=== PATIENT | male | born 1980 | race African-American/Black ===

== ENCOUNTER 2020-06-27 07:41 | Outpatient (REF) | payer OTHER, SELFPAY ==
[2020-06-27 08:16] LABS: MANUAL DIFF FLAG NO
[2020-06-27 08:19] LABS: Basophils Percent Auto 0.8 % (0-2); Eosinophils Absolute Auto 0.1 X10*3/uL (0.0-0.4); Eosinophils Percent Auto 1.7 % (0-4); Hemoglobin 16.1 g/dl (14.0-18.0); Imm Gran Abs Auto 0.01 X10*3/uL (0.00-0.03); Imm Gran Pct Auto 0.2 % (0.0-0.4); Lymphocytes Absolute Auto 2.1 X10*3/uL (1.2-4.9); Lymphocytes Percent Auto 43.5 % (20-40); Mean Corpuscular HGB Conc 33.5 g/dl (31.0-36.0); Mean Corpuscular Hemoglobin 27.6 pg (27.0-33.0); Mean Corpuscular Volume 82.2 fL (80-98); Mean Platelet Volume 11.5 fL (9.4-12.4); Monocytes Absolute Auto 0.5 X10*3/uL (0.1-1.2); Monocytes Percent Auto 11.3 % (2-11); Neutrophils Percent Auto 42.5 % (45-73); Platelet Count 259 X10*3/uL (160-400); Red Blood Count 5.84 X10*6/uL (4.60-5.80); Red Cell Distribution Width 13.7 % (11.0-16.0); White Blood Count 4.8 X10*3/uL (4.8-10.8)
[2020-06-27 08:38] LABS: Anion Gap 12 (12-20); Blood Urea Nitrogen 15 mg/dL (9-16); Calcium 9.7 mg/dL (8.4-10.2); Carbon Dioxide 31 mmol/L (22-29); Chloride 102 mmol/L (96-108); Estimated Glomerular Filt Rate > 60; Glucose Random 129 mg/dL (60-115); Potassium 3.5 mmol/L (3.3-5.1); Sodium 141 mmol/L (135-145)
[2020-06-28 02:06] LABS: LDL Cholesterol Direct 137 mg/dL (<100)
== END 2020-06-27 07:42 | disposition home or self-care (01) ==
LOC: HO.LAB 07:41
PROVIDERS: PCP Internal Medicine; Visit Provider Internal Medicine
DX: R21 Rash and other nonspecific skin eruption (principal); D70.9 Neutropenia, unspecified; I10 Essential (primary) hypertension
CPT/HCPCS: 36415; 80048; 83721; 85025

== ENCOUNTER → 2021-04-06 14:00 | Outpatient (BNVA) | payer OTHER, SELFPAY | PROVIDERS: PCP Internal Medicine; Referring Provider Internal Medicine; Visit Provider Psychiatry & Neurology Neurology ==

== ENCOUNTER → 2021-05-05 16:02 | Outpatient (REF) | payer OTHER, SELFPAY | LOC: HO.SL 16:02 | PROVIDERS: PCP Internal Medicine; Visit Provider Psychiatry & Neurology Neurology | DX: G47.33 Obstructive sleep apnea (adult) (pediatric) (principal); I10 Essential (primary) hypertension | CPT/HCPCS: 95806 ==

== ENCOUNTER 2021-05-26 13:17 | Outpatient (REF) | payer OTHER, SELFPAY ==
[2021-05-26 14:26] LABS: Alanine Aminotransferase 37 U/L (0-40); Albumin Level 4.6 g/dL (3.5-5.0); Alkaline Phosphatase 62 U/L (39-117); Anion Gap 13 (12-20); Aspartate Amino Transferase 32 U/L (5-37); Bilirubin Total 0.4 mg/dL (0.0-1.0); Blood Urea Nitrogen 13 mg/dL (9-16); Calcium 10.2 mg/dL (8.4-10.2); Carbon Dioxide 27 mmol/L (22-29); Chloride 104 mmol/L (96-108); Estimated Glomerular Filt Rate > 60; Glucose Random 105 mg/dL (60-115); Potassium 3.7 mmol/L (3.3-5.1); Sodium 140 mmol/L (135-145)
[2021-05-28 02:46] LABS: LDL Cholesterol Direct 141 mg/dL (<100)
== END 2021-05-26 13:18 | disposition home or self-care (01) ==
LOC: HO.HMGCLDS 13:17
PROVIDERS: PCP Internal Medicine; Visit Provider Internal Medicine
DX: E66.9 Obesity, unspecified (principal); I10 Essential (primary) hypertension
CPT/HCPCS: 36415; 80053; 83721

== ENCOUNTER → 2021-07-13 13:58 | Outpatient (BNVA) | payer OTHER, SELFPAY | PROVIDERS: PCP Internal Medicine; Visit Provider Nurse Practitioner Family | DX: Z13.89 Encounter for screening for other disorder (principal) ==

== ENCOUNTER 2021-12-24 09:54 | Outpatient (REF) | payer OTHER, SELFPAY ==
[2021-12-24 12:29] LABS: Alanine Aminotransferase 38 U/L (0-40); Albumin Level 4.6 g/dL (3.5-5.0); Alkaline Phosphatase 47 U/L (39-117); Anion Gap 18 (12-20); Aspartate Amino Transferase 35 U/L (5-37); Bilirubin Total 0.5 mg/dL (0.0-1.0); Blood Urea Nitrogen 18 mg/dL (9-16); Calcium 9.8 mg/dL (8.4-10.2); Carbon Dioxide 24 mmol/L (22-29); Chloride 100 mmol/L (96-108); Estimated Glomerular Filt Rate > 60; Glucose Random 112 mg/dL (60-115); Potassium 3.3 mmol/L (3.3-5.1); Sodium 139 mmol/L (135-145); Total Protein 7.6 g/dL (6.5-8.0)
[2021-12-26 21:07] LABS: LDL Cholesterol Direct 137 mg/dL (<100)
== END 2021-12-24 09:55 | disposition home or self-care (01) ==
LOC: HO.HMGCLDS 09:54
PROVIDERS: PCP Internal Medicine; Visit Provider Internal Medicine
DX: E66.01 Morbid (severe) obesity due to excess calories (principal); I10 Essential (primary) hypertension
CPT/HCPCS: 36415; 80053; 83721

== ENCOUNTER 2022-11-01 13:18 | Outpatient (AMB) | payer OTHER, SELFPAY ==
[2022-11-01 13:22] VITALS: BP 130/90; PULSE 87; O2SAT 96; BMI 47.0
--- NOTE | 2022-11-01 13:22 | MHC.PC.OV ---
Vital Signs 11/01/22 13:22 Height 6 ft 1 in Weight 356 lb 2 oz BMI 47.0 BP 130/90 H Blood Pressure Location Rt brachial Position Sitting Pulse 87 Pulse Source Pulse Oximeter Pulse Oximetry (%) 96 Oxygen Delivery Method Room Air Intake Visit Reasons: PE Allergies Seasonal Allergies Allergy (Intermediate, Verified 11/01/22 13:27) Itching lisinopril Adverse Reaction (Unknown, Verified 11/01/22 13:27) cough Medication List - Last Reconciled 11/01/22 by Kenneth Ceron MD atenolol-chlorthalidone 50-25 mg 1 tab PO DAILY 90 days Tobacco use date assessed: 11/01/22 Dental Screening Dental Screen Date: 11/01/22 Did you have a dental visit in the last 12 months?: No Did you have a dental problem in the last 6 months where you did not have access to dental care?: No Was dental information given to patient?: No HPI PE HPI Details Patient is 42-year-old gentleman was seen November of last year and missed his follow-up appointment after that Complaining of itching in the ears, patient was advised to stop using Q-tips after every shower He has traumatize his left ear canal with the knee and has a small bump, patient says that it is getting better Due for labs BMI is 47.0 need to lose weight Follow up 4 months [facility] Medical History Hypertension, essential Neutropenia Obesity Rash Tinea versicolor Surgical History No pertinent past surgical history Family History Father Unknown family medical history Mother HTN (hypertension) Afib CHF (congestive heart failure) Sister Diabetes mellitus HTN (hypertension) Family history of malignant neoplasm of uterus CKD (chronic kidney disease) Social History Housing: House Alcohol intake: never Patient Tobacco Use Status: Never used Tobacco e-Cigarette/Vaping Use: Never Used Current occupational status: employed Cognitive needs: No Hearing needs: No Vision needs: Yes Questionnaire PHQ-9 Over the last 2 weeks, how often have you been bothered by any of the following problems? 1. Little interest or pleasure in doing things: not at all 2. Feeling down, depressed, or hopeless: not at all 3. Trouble falling or staying asleep, or sleeping too much: not at all 4. Feeling tired or having little energy: several days 5. Poor appetite or overeating: not at all 6. Feeling bad about yourself - or that you are a failure or have let yourself or your family down: several days 7. Trouble concentrating on things, such as reading the newspaper or watching television: several days 8. Moving or speaking so slowly that other people could have noticed. Or the opposite - being so fidgety or restless that you have been moving around a lot more than usual: not at all 9. Thoughts that you would be better off or of hurting yourself in some way: not at all Total score: 3 Depression Screening Interpretation: Negative 29339 - PHQ-9 Billing: Yes Source: Developed by Drs. Tyrel Jiang, Jackie Dukes, Memo Ellis and colleagues, with an educational belinda from [employer]. Thrive Questionnaire Date Thrive assessed: 11/01/22 I am a: Patient What is your living situation today?: I have a steady place to live Within the past 12 months, did the food you bought not last and you didn't have the money to get more?: Never true Within the past 12 months, did you worry whether your food would run out before you got money to buy more?: Never true Do you have trouble paying for medicines?: No Do you have trouble getting transportation to medical appointments?: No Do you have trouble paying your heating and electricity bill?: No Do you have trouble taking care of your child, family member or friend?: No Do you have trouble with day-to-day activities such as bathing, preparing meals, shopping, managing finances, etc.?: No Are you currently unemployed and looking for a job?: No Are you interested in more education?: Yes AUDIT C Alcohol Use Questionnaire (AUDIT-C) 1. How often do you have a drink containing alcohol?: Never 3. How often do you have six or more drinks on one occasion?: Never Total Score: 0 Score Reviewed/Action Taken: Yes QUINCY-7 AMB Questionnaire QUINCY-7 Date QUINCY - 7 assessed: 11/01/22 Feeling nervous, anxious, or on edge: 0 = Not at all Not being able to stop or control worryin = More than half the days Worrying too much about different things: 2 = More than half the days Trouble relaxin = Several days Being so restless that it is hard to sit still: 0 = Not at all Becoming easily annoyed or irritable: 2 = More than half the days Feeling afraid as if something awful might happen: 2 = More than half the days Total QUINCY-7 score (0-4 normal; 5-9 mild; 10-14 moderate; 15-21 severe): 9 Source: Developed by Drs. Tyrel Jiang, Jackie Dukes, Memo Ellis and colleagues, with an educational belinda from [employer]. QUINCY-7 Assessment Billing QUINCY-7 Assessment Tool: QUINCY-7 Assessment 66734 Review of Systems Const Denies chills, Denies fever(s) and Denies headache(s) Eyes Denies blurry vision ENT Denies headache(s), Denies nasal discharge, Denies nasal obstruction, Denies odynophagia and Denies sinus pain Card Denies chest pain at rest and Denies chest pain with activity Resp Denies cough and Denies hemoptysis GI Denies diarrhea, Denies odynophagia, Denies vomiting and Denies hematemesis Reports as per HPI Musc Denies abnormal gait Skin/Breast Reports as per HPI Neuro Denies Neuro-related abnormal movements, Denies Abnormal speech present, Denies abnormal gait, Denies headache(s) and Denies Sensory deficit (Neuro) Psych Denies mood swings and Denies paranoia Endo Reports as per HPI Seth/Lymph Reports as per HPI Aller/Immun Reports as per HPI Physical exam (Primary Care) Vital Signs: Last Vital Signs Pulse 87 11/01/22 13:22 BP 130/90 H 11/01/22 13:22 Pulse Ox 96 11/01/22 13:22 Oxygen Delivery Method Room Air 11/01/22 13:22 BMI result Body Mass Index 47.0 Tobacco/Smoking Status: Tobacco use Status Tobacco use date assessed 11/01/22 11/01/22 13:27 Patient Tobacco Use Status Never used Tobacco 11/01/22 13:23 e-Cigarette/Vaping Use Never Used 11/01/22 13:23 PHQ-9: PHQ-9 Score PHQ-9: Total score 3 11/01/22 14:07 Depression Screening Interpretation: Negative Thrive Assessment: Date of Thrive Assessment Date Thrive assessed 11/01/22 11/01/22 14:07 Const General: cooperative, comfortable and no acute distress Orientation/consciousness: patient oriented x3 HENMT Other: Small papule at the age of left ear canal nontender Head: Yes normocephalic and Yes atraumatic Eyes General: appearance normal, both eyes and all related structures Pupils: Equal, round and reactive pupils present EOM: EOMs intact bilaterally Neck Neck: Yes supple and No lymphadenopathy Thyroid: Thyroid normal Lymphatic: no lymphadenopathy noted Resp Effort & Inspection: normal respiratory effort and able to speak in complete sentences Auscultation: clear to auscultation bilaterally Cardio Heart sounds: S1 normal heart sound present and S2 normal heart sound present GI Palpation (GI): Soft to palpation and nontender Auscultation: normal bowel sounds General: Yes no CVA tenderness Back/Spine/Pelvis Back: no CVA tenderness Skin General skin exam: elasticity normal and turgor normal Neuro General: patient oriented x3 and gait normal Cranial nerves: Yes Equal, round and reactive pupils present Speech: No Abnormal speech present Sensory Exam: No Sensory deficit (Neuro) Coordination: tandem gait normal and Romberg test negative Extrem General: Yes normal exam except as noted and No edema Assessment and Plan Assessment & Plan (1) Encounter for general adult medical examination with abnormal findings: Code(s): Z00.01 - Encounter for general adult medical examination with abnormal findings (2) Hypertension, essential: Code(s): I10 - Essential (primary) hypertension (3) Obesity: Code(s): E66.9 - Obesity, unspecified (4) Obstructive sleep apnea on CPAP: Code(s): G47.33 - Obstructive sleep apnea (adult) (pediatric); Z99.89 - Dependence on other enabling machines and devices Plan Patient is 42-year-old gentleman was seen November of last year and missed his follow-up appointment after that Complaining of itching in the ears, patient was advised to stop using Q-tips after every shower He has traumatize his left ear canal with the knee and has a small bump, patient says that it is getting better Due for labs BMI is 47.0 need to lose weight Follow up 4 months Orders: Orders Comprehensive [place]. Panel Fast Today E66.9 - Obesity, unspecified, G47.33 - Obstructive sleep apnea (adult) (pediatric), I10 - Essential (primary) hypertension, Z00.01 - Encounter for general adult medical examination with abnormal findings, Z99.89 - Dependence on other enabling machines and devices Lipid Panel Today E66.9 - Obesity, unspecified, G47.33 - Obstructive sleep apnea (adult) (pediatric), I10 - Essential (primary) hypertension, Z00.01 - Encounter for general adult medical examination with abnormal findings, Z99.89 - Dependence on other enabling machines and devices Complete Blood Count Auto Diff Today E66.9 - Obesity, unspecified, G47.33 - Obstructive sleep apnea (adult) (pediatric), I10 - Essential (primary) hypertension, Z00.01 - Encounter for general adult medical examination with abnormal findings, Z99.89 - Dependence on other enabling machines and devices Coding Level of Care Code Est Pt Prev Care 40-64y(92704) Diagnoses Encounter for general adult medical examination with abnormal findings Z00.01 Hypertension, essential I10 Obesity E66.9 Obstructive sleep apnea on CPAP G47.33; Z99.89 Additional Codes QUINCY-7 Assessment Billing - QUINCY-7 Assessment Tool: QUINCY-7 Assessment [id number] ([id number])
== END 2022-11-01 13:54 | disposition home or self-care (01) ==
PROVIDERS: PCP Internal Medicine; Visit Provider Internal Medicine
DX: Z00.01 Encounter for general adult medical examination with abnormal findings (principal); I10 Essential (primary) hypertension; Z68.42 Body mass index [BMI] 45.0-49.9, adult; E66.9 Obesity, unspecified; G47.33 Obstructive sleep apnea (adult) (pediatric); Z99.89 Dependence on other enabling machines and devices
CPT/HCPCS: 99396

== ENCOUNTER 2022-11-01 13:54 | Outpatient (REF) | payer OTHER, SELFPAY ==
[2022-11-01 16:07] LABS: MANUAL DIFF FLAG NO
[2022-11-01 16:20] LABS: Basophils Absolute Auto 0.1 X10*3/uL (0.0-0.2); Basophils Percent Auto 1.1 % (0-2); Eosinophils Absolute Auto 0.1 X10*3/uL (0.0-0.4); Hematocrit 45.3 % (42.0-52.0); Hemoglobin 15.3 g/dl (14.0-18.0); Imm Gran Abs Auto 0.01 X10*3/uL (0.00-0.03); Imm Gran Pct Auto 0.2 % (0.0-0.4); Lymphocytes Absolute Auto 2.1 X10*3/uL (1.2-4.9); Lymphocytes Percent Auto 48.2 % (20-40); Mean Corpuscular HGB Conc 33.8 g/dl (31.0-36.0); Mean Corpuscular Hemoglobin 27.4 pg (27.0-33.0); Mean Corpuscular Volume 81.2 fL (80.0-98.0); Mean Platelet Volume 11.3 fL (9.4-12.4); Monocytes Absolute Auto 0.6 X10*3/uL (0.1-1.2); Monocytes Percent Auto 12.4 % (2-11); Neutrophils Absolute Auto 1.6 x10*3/uL (2.0-8.3); Neutrophils Percent Auto 36.1 % (45-73); Platelet Count 277 X10*3/uL (160-400); Red Blood Count 5.58 X10*6/uL (4.60-5.80); Red Cell Distribution Width 13.5 % (11.0-16.0); White Blood Count 4.4 X10*3/uL (4.8-10.8)
[2022-11-01 16:50] LABS: Alanine Aminotransferase 38 U/L (0-40); Albumin Level 4.4 g/dL (3.5-5.0); Alkaline Phosphatase 46 U/L (39-117); Anion Gap 11 (12-20); Aspartate Amino Transferase 49 U/L (5-37); Bilirubin Total 0.5 mg/dL (0.0-1.0); Blood Urea Nitrogen 15 mg/dL (9-16); Calcium 9.7 mg/dL (8.4-10.2); Carbon Dioxide 26 mmol/L (22-29); Chloride 105 mmol/L (96-108); Cholesterol 195 mg/dL; Estimated Glomerular Filt Rate > 60; Glucose Fasting 94 mg/dL (60-99); HDL Cholesterol 35 mg/dL; LDL Cholesterol Calculated 125 mg/dl; Sodium 139 mmol/L (135-145); Total Protein 7.6 g/dL (6.5-8.0); Triglycerides 178 mg/dL
== END 2022-11-01 13:55 | disposition home or self-care (01) ==
LOC: HO.HMGCLDS 13:54
PROVIDERS: PCP Internal Medicine; Visit Provider Internal Medicine
DX: Z00.01 Encounter for general adult medical examination with abnormal findings (principal); I10 Essential (primary) hypertension; E66.9 Obesity, unspecified; G47.33 Obstructive sleep apnea (adult) (pediatric); Z99.89 Dependence on other enabling machines and devices
CPT/HCPCS: 36415; 80053; 80061; 85025

== ENCOUNTER 2022-11-07 13:52 | Outpatient (REF) | payer OTHER, SELFPAY ==
[2022-11-08 01:52] LABS: Anion Gap 12 (12-20); Carbon Dioxide 25 mmol/L (22-29); Chloride 105 mmol/L (96-108); Potassium 3.1 mmol/L (3.3-5.1); Sodium 139 mmol/L (135-145)
== END 2022-11-07 13:53 | disposition home or self-care (01) ==
LOC: HO.HMGCLDS 13:52
PROVIDERS: PCP Internal Medicine; Visit Provider Internal Medicine
DX: E87.6 Hypokalemia (principal)
CPT/HCPCS: 36415; 80051

== ENCOUNTER 2022-11-17 06:08 | Outpatient (REF) | payer OTHER, SELFPAY ==
[2022-11-17 12:19] LABS: Anion Gap 11 (12-20); Carbon Dioxide 25 mmol/L (22-29); Chloride 106 mmol/L (96-108); Potassium 3.8 mmol/L (3.3-5.1); Sodium 138 mmol/L (135-145)
== END 2022-11-17 06:09 | disposition home or self-care (01) ==
LOC: HO.HMGCLDS 06:08
PROVIDERS: PCP Internal Medicine; Visit Provider Internal Medicine
DX: E87.6 Hypokalemia (principal)
CPT/HCPCS: 36415; 80051

== ENCOUNTER 2023-03-02 08:35 | Outpatient (AMB) | payer OTHER, SELFPAY ==
--- NOTE | 2023-03-02 08:43 | A.OFFPC_ITS ---
Intake Visit Reasons: 4 month f/u Allergies Seasonal Allergies Allergy (Intermediate, Verified 03/02/23 09:01) Itching lisinopril Adverse Reaction (Unknown, Verified 03/02/23 09:01) cough Medication List - Last Reconciled 03/02/23 by Kenneth Ceron MD atenolol-chlorthalidone 50-25 mg 1 tab PO DAILY 90 days Tobacco use date assessed: 03/02/23 Dental Screening Dental Screen Date: 03/02/23 Did you have a dental visit in the last 12 months?: No Did you have a dental problem in the last 6 months where you did not have access to dental care?: No Was dental information given to patient?: Patient has dentist HPI 4 month f/u HPI Details Bp running around 148-128 systollic feels fine, no YOST, no CP still same wt as before, pt is morbidly obese, trying to lose wt he also have slightly low WBC count, we are keeping track of them he will have repeat labs before his next visit in june COUNT INCLUDES [facility] Medical History Rash Obesity Tinea versicolor Neutropenia Hypertension, essential Surgical History No pertinent past surgical history Family History Father Unknown family medical history Mother HTN (hypertension) Afib CHF (congestive heart failure) Sister Diabetes mellitus HTN (hypertension) Family history of malignant neoplasm of uterus CKD (chronic kidney disease) Social History Housing: House Alcohol intake: never Patient Tobacco Use Status: Never used Tobacco e-Cigarette/Vaping Use: Never Used Current occupational status: employed Cognitive needs: No Hearing needs: No Vision needs: Yes Questionnaire Thrive Questionnaire Date Thrive assessed: 11/01/22 AUDIT C Alcohol Use Questionnaire (AUDIT-C) 1. How often do you have a drink containing alcohol?: Never 3. How often do you have six or more drinks on one occasion?: Never Total Score: 0 Score Reviewed/Action Taken: Yes QUINCY-7 AMB Questionnaire QUINCY-7 Date QUINCY - 7 assessed: 11/01/22 Source: Developed by Jackie KwanW. Ernst, Memo Ellis and colleagues, with an educational belinda from [employer]. Review of Systems Const Denies chills and Denies fever(s) ENT Denies epistaxis and Denies nasal discharge Card Denies chest pain Resp Denies chest congestion, Denies cough and Denies hemoptysis GI Denies diarrhea and Denies nausea Skin/Breast Denies rash Neuro Reports no additional complaints Psych Reports no additional complaints Endo Reports no additional complaints Physical exam (Primary Care) Tobacco/Smoking Status: Tobacco use Status Tobacco use date assessed 03/02/23 03/02/23 09:02 Patient Tobacco Use Status Never used Tobacco 03/02/23 08:44 e-Cigarette/Vaping Use Never Used 03/02/23 08:44 Thrive Assessment: Date of Thrive Assessment Date Thrive assessed 11/01/22 03/02/23 08:44 Telehealth Telehealth Location of provider rendering services: practice address Location of patient: address on file Patient Identification confirmed using: Name, : Yes Telehealth method: video Patient verbally consented to treatment: Yes Patient verbally consented to billing insurance company: Yes Patient informed of any privacy concerns related to visit: Yes Minutes spent on Phone/Video with Pt.: 14 Assessment and Plan Assessment & Plan (1) Neutropenia: Comment: patient was seen by parking analyst and was told within normal limits Code(s): D70.9 - Neutropenia, unspecified Qualifiers: Neutropenia type: other Qualified Code(s): D70.8 - Other neutropenia (2) Hypertension, essential: Code(s): I10 - Essential (primary) hypertension (3) Morbid obesity due to excess calories: Code(s): E66.01 - Morbid (severe) obesity due to excess calories Plan this is Telemedicine visit Bp running around 148-128 systolic feels fine, no YOST, no CP still same wt as before, pt is morbidly obese, trying to lose wt he also have slightly low WBC count, we are keeping track of them he will have repeat labs before his next visit in June Orders: Orders Lipid Panel 3 Months D70.9 - Neutropenia, unspecified, E66.01 - Morbid (severe) obesity due to excess calories, I10 - Essential (primary) hypertension Complete Blood Count Auto Diff 3 Months D70.9 - Neutropenia, unspecified, E66.01 - Morbid (severe) obesity due to excess calories, I10 - Essential (primary) hypertension Comprehensive [place]. Panel Fast 3 Months D70.9 - Neutropenia, unspecified, E66.01 - Morbid (severe) obesity due to excess calories, I10 - Essential (primary) hypertension Coding Level of Care Code Tele Est Pt Level 3 (16438) Diagnoses Other neutropenia D70.8 Neutropenia type: other Hypertension, essential I10 Morbid obesity due to excess calories E66.01
== END 2023-03-02 11:56 | disposition home or self-care (01) ==
LOC: HO.HMGC 08:35
PROVIDERS: PCP Internal Medicine; Visit Provider Internal Medicine
DX: I10 Essential (primary) hypertension (principal); D70.8 Other neutropenia; E66.01 Morbid (severe) obesity due to excess calories
CPT/HCPCS: 99213

== ENCOUNTER 2023-06-28 15:49 | Outpatient (AMB) | payer OTHER, SELFPAY ==
--- NOTE | 2023-06-28 15:50 | A.OFFPC_ITS ---
Vital Signs 3 06/28/23 15:56 Height 6 ft 1 in Weight 361 lb 4 oz BMI 47.7 BP 136/94 H Blood Pressure Location Lt brachial Position Sitting Pulse 75 Pulse Source Pulse Oximeter Pulse Oximetry (%) 96 Oxygen Delivery Method Room Air Intake Visit Reasons: 8 month f/u Allergies Seasonal Allergies Allergy (Intermediate, Verified 06/28/23 15:57) Itching lisinopril Adverse Reaction (Unknown, Verified 06/28/23 15:57) cough Medication List - Last Reconciled 06/28/23 by Kenneth Ceron MD atenolol-chlorthalidone 50-25 mg 1 tab PO DAILY 90 days Tobacco use date assessed: 06/28/23 Dental Screening Dental Screen Date: 06/28/23 Did you have a dental visit in the last 12 months?: No Did you have a dental problem in the last 6 months where you did not have access to dental care?: No Was dental information given to patient?: Patient has dentist HPI 8 month f/u 2 HPI0 Details Patient is a 42-year-old gentleman came in today for his six-month follow-up appointment for blood pressure Diastolic blood pressure is slightly elevated Patient is taking his medication regularly he is on atenolol chlorthalidone 50- 25 mg once a day He has small growth left ear canal which is bothering patient he is requesting a referral for that Patient has appointment in October for physical examination Lab order was placed in February, patient forgot, reminded to do that fasting Patient is morbidly obese having difficulty losing weight PFSH Medical History Rash Obesity Tinea versicolor Neutropenia Hypertension, essential Surgical History No pertinent past surgical history Family History Father Unknown family medical history Mother HTN (hypertension) Afib CHF (congestive heart failure) Sister Diabetes mellitus HTN (hypertension) Family history of malignant neoplasm of uterus CKD (chronic kidney disease) Social History Housing: House Alcohol intake: never Patient Tobacco Use Status: Never used Tobacco e-Cigarette/Vaping Use: Never Used Current occupational status: employed Cognitive needs: No Hearing needs: No Vision needs: Yes Questionnaire PHQ-9 Over the last 2 weeks, how often have you been bothered by any of the following problems? 1. Little interest or pleasure in doing things: not at all 2. Feeling down, depressed, or hopeless: not at all 3. Trouble falling or staying asleep, or sleeping too much: not at all 4. Feeling tired or having little energy: several days 5. Poor appetite or overeating: not at all 6. Feeling bad about yourself - or that you are a failure or have let yourself or your family down: several days 7. Trouble concentrating on things, such as reading the newspaper or watching television: several days 8. Moving or speaking so slowly that other people could have noticed. Or the opposite - being so fidgety or restless that you have been moving around a lot more than usual: not at all 9. Thoughts that you would be better off or of hurting yourself in some way: not at all Total score: 3 Depression Screening Interpretation: Negative Depression Screening Done: Yes 13657 - PHQ-9 Billing: Yes Source: Developed by Drs. Tyrel Jiang, Jackie Dukes, Memo Ellis and colleagues, with an educational belinda from [employer]. Thrive Questionnaire Date Thrive assessed: 11/01/22 AUDIT C Alcohol Use Questionnaire (AUDIT-C) 1. How often do you have a drink containing alcohol?: Never 3. How often do you have six or more drinks on one occasion?: Never Total Score: 0 Score Reviewed/Action Taken: Yes QUINCY-7 AMB Questionnaire QUINCY-7 Date QUINCY - 7 assessed: 11/01/22 Source: Developed by Drs. Tyrel Jiang, Memo Campuzano and colleagues, with an educational belinda from [employer]. Review of Systems Const Denies chills and Denies fever(s) ENT Denies epistaxis and Denies nasal discharge Card Denies chest pain Resp Denies chest congestion, Denies cough and Denies hemoptysis GI Denies diarrhea and Denies nausea Skin/Breast Denies rash Neuro Reports no additional complaints Psych Reports no additional complaints Endo Reports no additional complaints Physical exam (Primary Care) Vital Signs: Last Vital Signs Pulse 75 06/28/23 15:56 BP 136/94 H 06/28/23 15:56 Pulse Ox 96 06/28/23 15:56 Oxygen Delivery Method Room Air 06/28/23 15:56 BMI result Body Mass Index 47.7 Tobacco/Smoking Status: Tobacco use Status Tobacco use date assessed 06/28/23 06/28/23 15:57 Patient Tobacco Use Status Never used Tobacco 06/28/23 15:51 e-Cigarette/Vaping Use Never Used 06/28/23 15:51 Depression Screening Interpretation: Negative Thrive Assessment: Date of Thrive Assessment Date Thrive assessed 11/01/22 06/28/23 15:51 Const General: cooperative, comfortable and no acute distress Orientation/consciousness: patient oriented x3 HENMT Head: Yes normocephalic Outer ear/TM images: 2 1. Small firm papular growth external ear left Eyes General: appearance normal, both eyes and all related structures Neck Neck: Yes supple Resp Effort & Inspection: normal respiratory effort, no cough and no stridor Cardio Rhythm: regular rhythm Heart sounds: S1 normal heart sound present and S2 normal heart sound present Skin General skin exam: turgor normal Neuro General: patient oriented x3, tone normal and moves all extremities Extrem Right lower extremity: no edema Left lower extremity: no edema Assessment and Plan Assessment & Plan (1) External ear disorder: Code(s): H61.90 - Disorder of external ear, unspecified, unspecified ear Qualifiers: Laterality: left Qualified Code(s): H61.92 - Disorder of left external ear, unspecified (2) Hypertension, essential: Code(s): I10 - Essential (primary) hypertension (3) Morbid obesity due to excess calories: Code(s): E66.01 - Morbid (severe) obesity due to excess calories Plan Patient is a 42-year-old gentleman came in today for his six-month follow-up appointment for blood pressure Diastolic blood pressure is slightly elevated Patient is taking his medication regularly he is on atenolol chlorthalidone 50- 25 mg once a day He has small growth left ear canal which is bothering patient he is requesting a referral for that Patient has appointment in October for physical examination Lab order was placed in February, patient forgot, reminded to do that fasting Patient is morbidly obese having difficulty losing weight Orders: Referrals 2 Ear/Nose/Throat Referral H61.90 - Disorder of external ear, unspecified, unspecified ear Coding Level of Care Code Est Pt Level 3 (18138) Diagnoses Disorder of left external ear H61.92 Laterality: left Hypertension, essential I10 Morbid obesity due to excess calories E66.01
[2023-06-28 15:56] VITALS: BP 136/94; PULSE 75; O2SAT 96; BMI 47.7
== END 2023-06-28 17:13 | disposition home or self-care (01) ==
PROVIDERS: PCP Internal Medicine; Visit Provider Internal Medicine
DX: H61.92 Disorder of left external ear, unspecified (principal); I10 Essential (primary) hypertension; E66.01 Morbid (severe) obesity due to excess calories; Z68.42 Body mass index [BMI] 45.0-49.9, adult
CPT/HCPCS: 99213

== ENCOUNTER 2023-07-01 06:52 | Outpatient (REF) | payer OTHER, SELFPAY ==
[2023-07-01 11:24] LABS: Basophils Percent Auto 0.8 % (0-2); Eosinophils Absolute Auto 0.1 X10*3/uL (0.0-0.4); Eosinophils Percent Auto 2.3 % (0-4); Hematocrit 46.9 % (42.0-52.0); Hemoglobin 15.5 g/dl (14.0-18.0); Imm Gran Abs Auto 0.01 X10*3/uL (0.00-0.03); Imm Gran Pct Auto 0.3 % (0.0-0.4); Lymphocytes Absolute Auto 1.5 X10*3/uL (1.2-4.9); Lymphocytes Percent Auto 43.4 % (20-40); MANUAL DIFF FLAG NO; Mean Corpuscular Hemoglobin 27.2 pg (27.0-33.0); Mean Corpuscular Volume 82.4 fL (80.0-98.0); Monocytes Absolute Auto 0.6 X10*3/uL (0.1-1.2); Monocytes Percent Auto 15.8 % (2-11); Neutrophils Absolute Auto 1.3 x10*3/uL (2.0-8.3); Neutrophils Percent Auto 37.4 % (45-73); Platelet Count 282 X10*3/uL (160-400); Red Blood Count 5.69 X10*6/uL (4.60-5.80); Red Cell Distribution Width 14.1 % (11.0-16.0); White Blood Count 3.6 X10*3/uL (4.8-10.8)
[2023-07-01 13:23] LABS: Alanine Aminotransferase 37 U/L (0-40); Albumin Level 4.4 g/dL (3.5-5.0); Alkaline Phosphatase 60 U/L (39-117); Anion Gap 13 (12-20); Aspartate Amino Transferase 36 U/L (5-37); Bilirubin Total 0.5 mg/dL (0.0-1.0); Blood Urea Nitrogen 15 mg/dL (9-16); Calcium 9.7 mg/dL (8.4-10.2); Carbon Dioxide 26 mmol/L (22-29); Chloride 103 mmol/L (96-108); Cholesterol 186 mg/dL (<200); Estimated Glomerular Filt Rate > 60; Glucose Fasting 123 mg/dL (60-99); HDL Cholesterol 33 mg/dL (>40); LDL Cholesterol Calculated 123 mg/dL (<100); Potassium 2.8 mmol/L (3.3-5.1); Sodium 139 mmol/L (135-145); Total Protein 7.7 g/dL (6.5-8.0); Triglycerides 151 mg/dL (<150)
== END 2023-07-01 06:53 | disposition home or self-care (01) ==
LOC: HO.HMGCLDS 06:52
PROVIDERS: PCP Internal Medicine; Visit Provider Internal Medicine
DX: D70.9 Neutropenia, unspecified (principal); I10 Essential (primary) hypertension; E66.01 Morbid (severe) obesity due to excess calories
CPT/HCPCS: 36415; 80053; 80061; 85025

== ENCOUNTER 2023-07-04 08:28 | Outpatient (REF) | payer OTHER, SELFPAY ==
[2023-07-04 09:34] LABS: Anion Gap 12 (12-20); Blood Urea Nitrogen 18 mg/dL (9-16); Calcium 9.2 mg/dL (8.4-10.2); Carbon Dioxide 28 mmol/L (22-29); Chloride 104 mmol/L (96-108); Estimated Glomerular Filt Rate > 60; Glucose Random 116 mg/dL (60-115); Potassium 3.1 mmol/L (3.3-5.1); Sodium 141 mmol/L (135-145)
== END 2023-07-04 08:29 | disposition home or self-care (01) ==
LOC: HO.LAB 08:28
PROVIDERS: PCP Internal Medicine; Visit Provider Internal Medicine
DX: E87.6 Hypokalemia (principal)
CPT/HCPCS: 36415; 80048

== ENCOUNTER 2023-07-12 06:11 | Outpatient (REF) | payer OTHER, SELFPAY ==
[2023-07-12 10:51] LABS: Anion Gap 9 (12-20); Blood Urea Nitrogen 13 mg/dL (9-16); Calcium 9.6 mg/dL (8.4-10.2); Carbon Dioxide 30 mmol/L (22-29); Chloride 104 mmol/L (96-108); Estimated Glomerular Filt Rate > 60; Glucose Random 118 mg/dL (60-115); Potassium 3.3 mmol/L (3.3-5.1); Sodium 140 mmol/L (135-145)
== END 2023-07-12 06:12 | disposition home or self-care (01) ==
LOC: HO.HMGCLDS 06:11
PROVIDERS: PCP Internal Medicine; Visit Provider Internal Medicine
DX: E87.6 Hypokalemia (principal)
CPT/HCPCS: 36415; 80048

== ENCOUNTER 2023-08-11 06:28 | Outpatient (REF) | payer OTHER, SELFPAY ==
[2023-08-11 11:00] LABS: Anion Gap 12 (12-20); Blood Urea Nitrogen 10 mg/dL (9-16); Calcium 8.9 mg/dL (8.4-10.2); Carbon Dioxide 25 mmol/L (22-29); Chloride 110 mmol/L (96-108); Estimated Glomerular Filt Rate > 60; Glucose Random 102 mg/dL (60-115); Potassium 3.5 mmol/L (3.3-5.1); Sodium 143 mmol/L (135-145)
== END 2023-08-11 06:29 | disposition home or self-care (01) ==
LOC: HO.HMGCLDS 06:28
PROVIDERS: PCP Internal Medicine; Visit Provider Internal Medicine
DX: E87.6 Hypokalemia (principal)
CPT/HCPCS: 36415; 80048

== ENCOUNTER 2023-08-15 15:34 | Outpatient (AMB) | payer OTHER, SELFPAY ==
[2023-08-15 15:38] VITALS: BP 182/102; PULSE 76; O2SAT 96; BMI 48.0
--- NOTE | 2023-08-15 15:38 | MHC.PC.OV ---
Vital Signs 08/15/23 15:38 08/15/23 15:48 Height 6 ft 1 in Weight 364 lb BMI 48.0 BP 182/102 H 176/100 H Blood Pressure Location Lt brachial Rt brachial Position Sitting Sitting Pulse 76 Pulse Source Pulse Oximeter Pulse Oximetry (%) 96 Oxygen Delivery Method Room Air Intake Visit Reasons: F/u Labs~ Allergies Seasonal Allergies Allergy (Intermediate, Verified 08/15/23 15:39) Itching lisinopril Adverse Reaction (Unknown, Verified 08/15/23 15:39) cough Medication List - Last Reconciled 08/15/23 by Kenneth Ceron MD atenolol 100 mg PO DAILY Tobacco use date assessed: 08/15/23 Dental Screening Dental Screen Date: 08/15/23 Did you have a dental visit in the last 12 months?: Yes Did you have a dental problem in the last 6 months where you did not have access to dental care?: No Was dental information given to patient?: Patient has dentist HPI F/u Labs~ HPI Details Patient is a 42-year-old gentleman came today to have follow-up visit on high blood pressure Last visit was started on atenolol 100 mg Is chlorthalidone was stopped as patient continued drop potassium K is normal now Bp is still elevated, i am adding Aldacton 50 mg Pt is to return in 7 days for Bp recheck by Nurse he is also c/o SOB off and on Pt has sleep apnea, he has not seen any one for that in a while I have placed a referral for him to see managed care specialist he has been walking though to lose weight, but he has gained 3 lb since seen last month Patient is also complaining of ankle swelling at the end of the day off and on It can also be since we have stopped the chlorthalidone, and that is a diuretic I am hoping that spironolactone will help him with fluid retention We have also entertain the possibility of peripheral vascular disease due to his weight Patient is morbidly obese He does not have any orthopnea or chest pain Labs are needed again in 4 weeks and then in October before she returned for his follow-up appointment with [facility] Medical History Rash Obesity Tinea versicolor Neutropenia Hypertension, essential Surgical History No pertinent past surgical history Family History Father Unknown family medical history Mother HTN (hypertension) Afib CHF (congestive heart failure) Sister Diabetes mellitus HTN (hypertension) Family history of malignant neoplasm of uterus CKD (chronic kidney disease) Social History Housing: House Alcohol intake: never Patient Tobacco Use Status: Never used Tobacco e-Cigarette/Vaping Use: Never Used Current occupational status: employed Cognitive needs: No Hearing needs: No Vision needs: Yes Questionnaire Thrive Questionnaire Date Thrive assessed: 11/01/22 AUDIT C Alcohol Use Questionnaire (AUDIT-C) 1. How often do you have a drink containing alcohol?: Never 3. How often do you have six or more drinks on one occasion?: Never Total Score: 0 Score Reviewed/Action Taken: Yes QUINCY-7 AMB Questionnaire QIUNCY-7 Date QUINCY - 7 assessed: 11/01/22 Source: Developed by Drs. Tyrel Jiang, Jackie Dukes, Memo Ellis and colleagues, with an educational belinda from [employer]. Review of Systems Const Denies chills and Denies fever(s) ENT Denies epistaxis and Denies nasal discharge Card Denies chest pain Resp Denies chest congestion, Denies cough and Denies hemoptysis GI Denies diarrhea and Denies nausea Skin/Breast Denies rash Neuro Reports no additional complaints Psych Reports no additional complaints Endo Reports no additional complaints Physical exam (Primary Care) Vital Signs: Last Vital Signs Pulse 76 08/15/23 15:38 BP 176/100 H 08/15/23 15:48 Pulse Ox 96 08/15/23 15:38 Oxygen Delivery Method Room Air 08/15/23 15:38 BMI result Body Mass Index 48.0 Tobacco/Smoking Status: Tobacco use Status Tobacco use date assessed 08/15/23 08/15/23 15:40 Patient Tobacco Use Status Never used Tobacco 08/15/23 15:40 e-Cigarette/Vaping Use Never Used 08/15/23 15:40 Thrive Assessment: Date of Thrive Assessment Date Thrive assessed 11/01/22 08/15/23 15:40 Const General: cooperative, comfortable and no acute distress Orientation/consciousness: patient oriented x3 HENMT Head: Yes normocephalic Eyes General: appearance normal, both eyes and all related structures Neck Neck: Yes supple Resp Effort & Inspection: normal respiratory effort, no cough and no stridor Cardio Rhythm: regular rhythm Heart sounds: S1 normal heart sound present and S2 normal heart sound present Skin General skin exam: turgor normal Neuro General: patient oriented x3, tone normal and moves all extremities Extrem Right lower extremity: no edema Left lower extremity: no edema Assessment and Plan Assessment & Plan (1) Hypertension, essential: Code(s): I10 - Essential (primary) hypertension (2) Neutropenia: Comment: patient was seen by account manager forest service and was told within normal limits Code(s): D70.9 - Neutropenia, unspecified Qualifiers: Neutropenia type: other Qualified Code(s): D70.8 - Other neutropenia (3) Short of breath on exertion: Code(s): R06.02 - Shortness of breath (4) Obstructive sleep apnea on CPAP: Code(s): G47.33 - Obstructive sleep apnea (adult) (pediatric); Z99.89 - Dependence on other enabling machines and devices (5) Swelling of both ankles: Code(s): M25.471 - Effusion, right ankle; M25.472 - Effusion, left ankle Plan Patient is a 42-year-old gentleman came today to have follow-up visit on high blood pressure Last visit was started on atenolol 100 mg Is chlorthalidone was stopped as patient continued drop potassium K is normal now Bp is still elevated, i am adding Aldacton 50 mg Pt is to return in 7 days for Bp recheck by Nurse he is also c/o SOB off and on Pt has sleep apnea, he has not seen any one for that in a while I have placed a referral for him to see managed care specialist he has been walking though to lose weight, but he has gained 3 lb since seen last month Patient is also complaining of ankle swelling at the end of the day off and on It can also be since we have stopped the chlorthalidone, and that is a diuretic I am hoping that spironolactone will help him with fluid retention We have also entertain the possibility of peripheral vascular disease due to his weight Patient is morbidly obese He does not have any orthopnea or chest pain Labs are needed again in 4 weeks and then in October before she returned for his follow-up appointment with me Continued to have mild neutropenia off and on as well, we will continue to monitor that Orders: Orders Comprehensive Met. Panel 3 Weeks I10 - Essential (primary) hypertension Complete Blood Count Auto Diff 3 Weeks D70.8 - Other neutropenia Complete Blood Count Auto Diff 3 Months D70.8 - Other neutropenia, G47.33 - Obstructive sleep apnea (adult) (pediatric), I10 - Essential (primary) hypertension, M25.471 - Effusion, right ankle, M25.472 - Effusion, left ankle, R06.02 - Shortness of breath, Z99.89 - Dependence on other enabling machines and devices Comprehensive Met. Panel 3 Months D70.8 - Other neutropenia, G47.33 - Obstructive sleep apnea (adult) (pediatric), I10 - Essential (primary) hypertension, M25.471 - Effusion, right ankle, M25.472 - Effusion, left ankle, R06.02 - Shortness of breath, Z99.89 - Dependence on other enabling machines and devices Referrals Pulmonary Medicine Referral G47.33 - Obstructive sleep apnea (adult) (pediatric), R06.02 - Shortness of breath, Z99.89 - Dependence on other enabling machines and devices Medications: New spironolactone (Aldactone) 50 mg PO QAM 30 tabs 0RF Coding Level of Care Code Est Pt Level 4 (43426) Complex EM visit Add On G2211 Diagnoses Hypertension, essential I10 Other neutropenia D70.8 Neutropenia type: other Short of breath on exertion R06.02 Obstructive sleep apnea on CPAP G47.33; Z99.89 Swelling of both ankles M25.471; M25.472
[2023-08-15 15:48] VITALS: BP 176/100
== END 2023-08-15 16:27 | disposition home or self-care (01) ==
PROVIDERS: PCP Internal Medicine; Visit Provider Internal Medicine
DX: I10 Essential (primary) hypertension (principal); D70.8 Other neutropenia; R06.02 Shortness of breath; G47.33 Obstructive sleep apnea (adult) (pediatric); Z99.89 Dependence on other enabling machines and devices; M25.471 Effusion, right ankle; M25.472 Effusion, left ankle
CPT/HCPCS: 99214; G2211

== ENCOUNTER 2023-08-30 11:11 | Outpatient (AMB) | payer OTHER, SELFPAY ==
--- NOTE | 2023-08-30 11:49 | MHC.PC.OV ---
Intake Visit Reasons: Discuss Med~ [phone] Allergies Seasonal Allergies Allergy (Intermediate, Verified 08/30/23 11:50) Itching lisinopril Adverse Reaction (Unknown, Verified 08/30/23 11:50) cough Medication List - Last Reconciled 08/30/23 by Kenneth Ceron MD atenolol 100 mg PO DAILY losartan 25 mg PO DAILY spironolactone (Aldactone) 50 mg PO QAM Tobacco use date assessed: 08/30/23 Dental Screening Dental Screen Date: 08/30/23 Did you have a dental visit in the last 12 months?: Yes Did you have a dental problem in the last 6 months where you did not have access to dental care?: No Was dental information given to patient?: Patient has dentist HPI Discuss Med~ [phone] HPI Details Patient is 43-year-old gentleman with resistant hypertension We have tried few blood pressure medications but his pressure continue to be elevated. Recently I added Aldacton as his potassium continue to be low as well. He is taking a Atenolol 100 mg, Losartanand 25 mg and spironolactone 25 mg and his blood pressure readings are same as before, 160 is systolic and 110?diastolic. Patient does not have any blurring of vision,? chest pain or headache. I am booking appointment with nephrology to manage his resistant hypertension and recurrent hypokalemia. plan discussed with the patient and he agrees. [facility] Medical History Rash Obesity Tinea versicolor Neutropenia Hypertension, essential Surgical History No pertinent past surgical history Family History Father Unknown family medical history Mother HTN (hypertension) Afib CHF (congestive heart failure) Sister Diabetes mellitus HTN (hypertension) Family history of malignant neoplasm of uterus CKD (chronic kidney disease) Social History Housing: House Alcohol intake: never Patient Tobacco Use Status: Never used Tobacco e-Cigarette/Vaping Use: Never Used Current occupational status: employed Cognitive needs: No Hearing needs: No Vision needs: Yes Questionnaire Thrive Questionnaire Date Thrive assessed: 11/01/22 AUDIT C Alcohol Use Questionnaire (AUDIT-C) 1. How often do you have a drink containing alcohol?: Never 3. How often do you have six or more drinks on one occasion?: Never Total Score: 0 Score Reviewed/Action Taken: Yes QUINCY-7 AMB Questionnaire QUINCY-7 Date QUINCY - 7 assessed: 11/01/22 Source: Developed by Drs. Tyrel Jiang, Jackie Dukes, Memo Ellis and colleagues, with an educational belinda from [employer]. Review of Systems Const Denies chills and Denies fever(s) ENT Denies epistaxis and Denies nasal discharge Card Denies chest pain Resp Denies chest congestion, Denies cough and Denies hemoptysis GI Denies diarrhea and Denies nausea Skin/Breast Denies rash Neuro Reports no additional complaints Psych Reports no additional complaints Endo Reports no additional complaints Physical exam (Primary Care) Tobacco/Smoking Status: Tobacco use Status Tobacco use date assessed 08/30/23 08/30/23 11:52 Patient Tobacco Use Status Never used Tobacco 08/30/23 11:52 e-Cigarette/Vaping Use Never Used 08/30/23 11:52 Thrive Assessment: Date of Thrive Assessment Date Thrive assessed 11/01/22 08/30/23 11:52 Telehealth Telehealth Telehealth Platform: Two[employer] Location of provider rendering services: practice address Location of patient: address on file Patient Identification confirmed using: Name, : Yes Telehealth method: video (attempted) Patient verbally consented to treatment: Yes Patient verbally consented to billing insurance company: Yes Patient informed of any privacy concerns related to visit: Yes Minutes spent on Phone/Video with Pt.: 14 Assessment and Plan Assessment & Plan (1) Resistant hypertension: Code(s): I1A.0 - Resistant hypertension (2) Hypokalemia: Code(s): E87.6 - Hypokalemia Plan Patient is 43-year-old gentleman with resistant hypertension We have tried few blood pressure medications but his pressure continue to be elevated. Recently I added Aldacton as his potassium continue to be low as well. He is taking a Atenolol 100 mg, Losartanand 25 mg and spironolactone 25 mg and his blood pressure readings are same as before, 160 is systolic and 110?diastolic. Patient does not have any blurring of vision,? chest pain or headache. I am booking appointment with nephrology to manage his resistant hypertension and recurrent hypokalemia. plan discussed with the patient and he agrees. Orders: Referrals Nephrology Referral E87.6 - Hypokalemia, I1A.0 - Resistant hypertension Coding Level of Care Code Est Pt Level 3 (28623) Diagnoses Resistant hypertension I1A.0 Hypokalemia E87.6
== END 2023-08-30 12:50 | disposition home or self-care (01) ==
LOC: HO.HMGC 11:11
PROVIDERS: PCP Internal Medicine; Visit Provider Internal Medicine
DX: I1A.0 Resistant hypertension (principal); E87.6 Hypokalemia
CPT/HCPCS: 99213

== ENCOUNTER 2023-09-07 15:07 | Outpatient (AMB) | payer OTHER, SELFPAY ==
[2023-09-07 15:10] VITALS: BP 162/108; PULSE 73; O2SAT 97; BMI 47.1
--- NOTE | 2023-09-07 15:10 | HO.NEPHOV ---
Vital Signs 09/07/23 15:10 Height 6 ft 1 in Weight 357 lb BMI 47.1 BP 162/108 H Blood Pressure Location Lt brachial Position Sitting Pulse 73 Pulse Source Pulse Oximeter Pulse Oximetry (%) 97 Oxygen Delivery Method Room Air Intake Visit Reasons: Resistant htn/Hypokalemia/ Confirmed Blending Operator Required: No Accompanied by: Self / Same As Patient Allergies Seasonal Allergies Allergy (Intermediate, Verified 09/07/23 15:12) Itching lisinopril Adverse Reaction (Unknown, Verified 09/07/23 15:12) cough HPI Comments Details: . Kevin is a pleasant 43-year-old man with a history of hypertension for quite some time in the setting of obstructive sleep apnea and elevated BMI. He was on atenolol with chlorthalidone and blood pressure was controlled. However he had persistent hypokalemia requiring potassium supplementation. Due to recurrent hypokalemia chlorthalidone was discontinued. Blood pressure is suboptimal therefore spironolactone was added. He was also given losartan 25 mg a day. He has been referred for further evaluation for hypokalemia and hypertension. He has been using CPAP regularly. [facility] Medical History Rash Obesity Tinea versicolor Neutropenia Hypertension, essential Surgical History No pertinent past surgical history Family History Father Unknown family medical history Mother HTN (hypertension) Afib CHF (congestive heart failure) Sister Diabetes mellitus HTN (hypertension) Family history of malignant neoplasm of uterus CKD (chronic kidney disease) Social History Housing: House Alcohol intake: never Patient Tobacco Use Status: Never used Tobacco e-Cigarette/Vaping Use: Never Used Current occupational status: employed Cognitive needs: No Hearing needs: No Vision needs: Yes Review of Systems Const Denies fever(s) and Denies weight loss Card Denies chest pain Resp Denies cough and Denies hemoptysis GI Denies abdominal pain, Denies diarrhea and Denies nausea Musc Denies back pain Neuro Denies focal weakness Physical Exam Vital Signs: Last Vital Signs Pulse 73 09/07/23 15:10 BP 162/108 H 06/13/24 15:10 Pulse Ox 97 09/07/23 15:10 Oxygen Delivery Method Room Air 09/07/23 15:10 BMI result Body Mass Index 47.1 Const General: comfortable; No acute distress Orientation/consciousness: patient oriented x3 Eyes General: appearance normal, both eyes and all related structures Visual [place]: normal visual [place] by confrontation Neck Neck: Yes supple and Yes no JVD Resp Effort & Inspection: normal respiratory effort and respiratory effort not decreased Auscultation: rhonchi Cardio Palpation: no palpable S3 and no palpable S4 Heart sounds: no rubs GI Inspection: Yes normal to inspection Palpation (GI): Soft to palpation Percussion: Yes normal to percussion Auscultation: normal bowel sounds General: Yes no CVA tenderness Back/Spine/Pelvis Back: no CVA tenderness Skin General skin exam: no petechiae and no purpura Neuro General: patient oriented x3 and no focal motor deficits Extrem General: No clubbing and No edema Results Reviewed Nephrology Results: Hgb 15.5 g/dl (14.0-18.0) 07/01/23 WBC 3.6 X10*3/uL (4.8-10.8) L 07/01/23 Plt Count 282 X10*3/uL (160-400) 07/01/23 Sodium 143 mmol/L (135-145) 08/11/23 Potassium 3.5 mmol/L (3.3-5.1) 08/11/23 Chloride 110 mmol/L (96-108) H 08/11/23 Carbon Dioxide 25 mmol/L (22-29) 08/11/23 BUN 10 mg/dL (9-16) 08/11/23 Creatinine 1.08 mg/dL (0.5-1.4) 08/11/23 Calcium 8.9 mg/dL (8.4-10.2) 08/11/23 Assessment & Plan Assessment & Plan (1) Hypokalemia: Code(s): E87.6 - Hypokalemia Category: Medical (2) Resistant hypertension: Code(s): I1A.0 - Resistant hypertension Category: Medical Plan . 43-year-old man with hypertension and elevated BMI with hypokalemia. The hypokalemia might have been due to the use of chlorthalidone. There was no alkalosis. However with a combination of hypertension and hypokalemia hyperaldosteronism needs to be ruled out. At present blood pressure is suboptimal. He is started taking losartan 25 mg spironolactone 50 mg and atenolol in the last few days. For now I will wait with the next week or so. Encouraged him to stay on low-sodium diet. I will start workup with a screening. Obtain serum aldosterone and plasma renin activity. If abnormal I would have to stop spironolactone and losartan and recheck PA/PRA ratio. I have discussed importance of weight loss and continued use of CPAP to optimize blood pressure control. I will keep you updated with his progress Orders: Orders Aldost/Renin 1 Week E87.6 - Hypokalemia, I1A.0 - Resistant hypertension Renin 1 Week E87.6 - Hypokalemia, I1A.0 - Resistant hypertension Aldosterone 1 Week E87.6 - Hypokalemia, I1A.0 - Resistant hypertension UA and rflx microscopic 1 Week I1A.0 - Resistant hypertension Total Protein Urine Random 1 Week I1A.0 - Resistant hypertension Creatinine Urine 1 Week I1A.0 - Resistant hypertension Coding Level of Care Code New Pt Level 4 (46909) Diagnoses Hypokalemia E87.6 Resistant hypertension I1A.0
== END 2023-09-07 15:58 | disposition home or self-care (01) ==
PROVIDERS: PCP Internal Medicine; Referring Provider Internal Medicine; Visit Provider Internal Medicine Hypertension Specialist
DX: E87.6 Hypokalemia (principal); I1A.0 Resistant hypertension
CPT/HCPCS: 99204

== ENCOUNTER → 2023-09-07 15:07 | Outpatient (BNVA) | payer OTHER, SELFPAY | PROVIDERS: PCP Internal Medicine; Referring Provider Internal Medicine; Visit Provider Internal Medicine Hypertension Specialist ==

== ENCOUNTER 2023-09-15 16:37 | Outpatient (REF) | payer OTHER, SELFPAY ==
[2023-09-15 18:38] LABS: Appearance Urine Clear; Color Urine Yellow; Glucose Urine UA Negative (Negative); Leukocyte Esterase Urine Negative (Negative); Nitrite Urine Negative (Negative); Urine Blood Negative (Negative); Urine Ketones Negative (Negative); Urine Protein Negative (Neg-Trace)
[2023-09-15 19:03] LABS: Creatinine Urine 183.64 mg/dL; Total Protein Urine Random 8 mg/dL (<12)
[2023-09-25 05:54] LABS: Aldosterone/Renin Ratio 9.5 Ratio (0.9-28.9); Plasma Renin Activity 0.21 ng/mL/h (0.25-5.82)
== END 2023-09-15 16:38 | disposition home or self-care (01) ==
LOC: HO.LAB 16:37
PROVIDERS: Absent Provider Internal Medicine; PCP Internal Medicine; Visit Provider Internal Medicine Hypertension Specialist
DX: I1A.0 Resistant hypertension (principal); E87.6 Hypokalemia
CPT/HCPCS: 36415; 81003; 82088; 82570; 84156; 84244

== ENCOUNTER 2023-09-19 15:32 | Outpatient (AMB) | payer OTHER, SELFPAY ==
[2023-09-19 15:37] VITALS: BP 124/90; PULSE 63; O2SAT 97; BMI 47.0
--- NOTE | 2023-09-19 15:37 | MHC.OFFVIS ---
Vital Signs 09/19/23 15:37 Height 6 ft 1 in Weight 356 lb 0.745 oz BMI 47.0 BP 124/90 H Blood Pressure Location Lt brachial Position Sitting Pulse 63 Pulse Source Pulse Oximeter Pulse Oximetry (%) 97 Oxygen Delivery Method Room Air Intake Visit Reasons: karol Intake Note: pt is here as a new patient (former pt in past) experiencing short of breath that started a few weeks ago, pt has been using cpap everynight, but stopped transmitting in July, he put a call in to company, the short of breath with exertion and some swelling, had multiple medication adjustments lately also. Information Security Architect Required: No Allergies Seasonal Allergies Allergy (Intermediate, Verified 09/19/23 16:05) Itching lisinopril Adverse Reaction (Unknown, Verified 09/19/23 16:05) cough Medication List - Last Reconciled 09/19/23 by Mark Wilson MD atenolol 100 mg PO DAILY losartan 25 mg PO DAILY spironolactone 50 mg PO QAM Do you need a note to return to daycare/school/sports/work: No HPI HPI karol: Details: THIS 43 YEARS OLD GENTLEMAN WITH MORBID OBESITY, AND DIAGNOSIS OF OBSTRUCTIVE SLEEP APNEA, USING CPAP AT NIGHT, COMES TODAY TO OUR OFFICE, WHICH CHIEF COMPLAINT THAT HE GETS SHORT OF BREATH ON MINIMAL EXERTION. HE DENIES ANY COUGH OR WHEEZING, HE HAS DIAGNOSIS OF OBSTRUCTIVE SLEEP APNEA SINCE ABOUT 2 YEARS AGO AND HAS BEEN ON CPAP. HE CLAIMS THAT HE USES THE CPAP EVERY NIGHT, EXCEPT ON SOME NIGHTS WHEN HE FALLS ASLEEP WITHOUT PUTTING THE MASK ON. HE SLEEPS FAIRLY WELL WITH THE CPAP. LATELY HE WAS RETAINING FLUID AND HE IS BEING TREATED WITH SPIRONOLACTONE 50 MG A DAY. HE IS ALSO ON ATENOLOL AND LOSARTAN FOR CONTROL OF HYPERTENSION. PATIENT DENIES ANY HISTORY OF BRONCHIAL ASTHMA, BUT COMPLAINS OF SHORTNESS OF BREATH WITH ANY EXERTION. HE IS NONSMOKER . [facility] Medical History Rash Obesity Tinea versicolor Neutropenia Hypertension, essential Surgical History No pertinent past surgical history Family History Father Unknown family medical history Mother HTN (hypertension) Afib CHF (congestive heart failure) Sister Diabetes mellitus HTN (hypertension) Family history of malignant neoplasm of uterus CKD (chronic kidney disease) Social History Housing: House Alcohol intake: never Patient Tobacco Use Status: Never used Tobacco e-Cigarette/Vaping Use: Never Used Current occupational status: employed Cognitive needs: No Hearing needs: No Vision needs: Yes Review of Systems Const All systems reviewed & are unremarkable except as noted in HPI and below Eyes Reports no additional complaints ENT Reports no additional complaints Card Denies chest pain, Denies irregular heart rhythm and Denies leg edema Resp Reports as per HPI GI Reports no additional complaints Musc Reports no additional complaints Skin/Breast Reports system reviewed and no additional complaints, except as documented Neuro Reports no additional complaints Psych Reports no additional complaints Endo Reports no additional complaints Seth/Lymph Reports no additional complaints Aller/Immun Reports no additional complaints Physical Exam Vital Signs: Last Vital Signs Pulse 63 09/19/23 15:37 BP 124/90 H 09/19/23 15:37 Pulse Ox 97 09/19/23 15:37 Oxygen Delivery Method Room Air 09/19/23 15:37 BMI result Body Mass Index 47.0 Const General: healthy appearing (EXCEPT FOR GROSS OBESITY ), comfortable, no acute distress, alert and awake Orientation/consciousness: patient oriented x3 HEENT Head: Yes normal to inspection General nose exam: No nasal polyps present and No nasal discharge present Face and sinus: Yes sinuses nontender Mouth: oropharynx normal Throat: Yes posterior oropharynx normal Eyes General: appearance normal, both eyes and all related structures Neck Neck: Yes normal visual inspection, Yes no lymphadenopathy, Yes trachea midline and Yes no JVD Thyroid: Thyroid normal Chest Chest palpation & inspection: normal inspection of the chest, normal palpation of entire chest wall and no tenderness Resp Other: PERCUSSION NOTE IS RESONANT EXCEPT OVER THE BASILAR AREAS. BREATH SOUNDS ARE DIMINISHED OVER THE BASILAR AREAS. NO WHEEZES RHONCHI OR CREPITATIONS ARE HEARD. Cardio Palpation: PMI not normal (NOT PALPABLE) Rate: regular rate Rhythm: regular rhythm Heart sounds: no gallops and no murmurs Peripheral pulses: Peripheral pulses 2+ throughout GI Palpation (GI): Soft to palpation, Tenderness to palpation present (GI), No hepatosplenomegaly present, Palpable mass present and Other GI palpation findings present (ABDOMEN IS OBESE AND PROTUBERANT) Auscultation: normal bowel sounds Back/Spine/Pelvis Thoracic/Lumbar Spine: thoracic and lumbar spine normal to inspection and thoraco-lumbar ROM limited Skin General skin exam: no rashes or lesions noted Neuro General: patient oriented x3 and no focal motor deficits Cranial nerves: Yes CN's II-XII intact bilaterally Extrem General: Yes normal to inspection, Yes no calf tenderness and Yes edema (MILD PITTING EDEMA AROUND THE ANKLES.) Psych Appearance: grossly normal and well kempt Speech and movement: Normal speech and movement present Results Reviewed Results Reviewed: HCT. 47 k+ 07/01/23 2.8 08/11/23 3.5 Assessment & Plan Assessment & Plan (1) Morbid obesity due to excess calories: Comment: THIS GENTLEMAN SUFFERS FROM MORBID OBESITY. Code(s): E66.01 - Morbid (severe) obesity due to excess calories Category: Medical Plan: DISCUSSED WITH HIM ABOUT THE WEIGHT, HE NEEDS TO LOSE WEIGHT, HE SHOULD JOIN A WEIGHT MANAGEMENT PROGRAM , OR AT LEAST HE SHOULD SEE A DIETITIAN/CURRICULUM MANAGER (2) Obstructive sleep apnea on CPAP: Comment: HE IS KNOWN TO HAVE OBSTRUCTIVE SLEEP APNEA, BEING TREATED WITH CPAP WHICH HE USES REGULARLY. CPAP MACHINE NOT TRANSMITTING THE COMPLIANCE DATA, BUT HE CLAIMS THAT HE IS USING EVERY NIGHT FOR AT LEAST 5-6 HOURS PER NIGHT. COMPLIANCE REPORT FROM END OF MAY TO [facility] IS AVAILABLE WHICH SHOWS THAT HE WAS USING IT ALMOST EVERY DAY, FOR 6 HOURS 15 MINUTES ON AN AVERAGE. PRESSURE USED 6---7.9 CM. RESIDUAL AHI ONLY 1 PATIENT WAS INITIALLY FOLLOWED BY THE SLEEP MEDICINE SERVICE BUT HAS NOT BEEN ABLE TO GO TO THAT OFFICE FOR THE LAST 2 YEARS, Code(s): G47.33 - Obstructive sleep apnea (adult) (pediatric); Z99.89 - Dependence on other enabling machines and devices Category: Medical Plan: PATIENT IS INSTRUCTED TO USE CPAP EVERY NIGHT. WE ARE GOING TO CONTACT THE DME SUPPLIER AND SEE IF WE CAN GET HIS COMPLI ANCE. DATA MORE REGULARLY PATIENT REQUESTS THAT WE SHOULD FOLLOW HIM UP FOR THE CPAP . USAGE (3) Short of breath on exertion: Comment: DYSPNEA ON MINIMAL EXERTION IS RELATED TO MULTIPLE FACTORS, 1- MORBID OBESITY. 2-PROBABLY HAS RESTRICTIVE PULMONARY DISORDER. 3-POSSIBLE EXERTIONAL HYPOXEMIA 4 - RECENT UNCONTROLLED HYPERTENSION AND HYPOKALEMIA. 5 POOR PHYSICAL CONDITIONING Code(s): R06.02 - Shortness of breath Category: Medical Plan: DISCUSSED THE ALL THE ABOVE. FACTORS WITH HIM INCENTIVE SPIROMETER GIVEN AND HE IS ADVISED TO DO DEEP BREATHING EXERCISES EVERY HOUR WHILE AWAKE. WILL ARRANGE TO DO A SPIROMETRY IN THE OFFICE AND ALSO 6 MINUTES WALK TEST DISCUSSED WITH HIM THAT HE NEEDS TO LOSE WEIGHT. ADVISE THAT HE SHOULD USE HIS CPAP REGULARLY EVERY NIGHT AT LEAST FOR 6 HOURS. Coding Level of Care Code New Pt Level 3 (44781) Diagnoses Morbid obesity due to excess calories E66.01 Obstructive sleep apnea on CPAP G47.33; Z99.89 Short of breath on exertion R06.02
== END 2023-09-19 16:05 | disposition home or self-care (01) ==
PROVIDERS: PCP Internal Medicine; Referring Provider Internal Medicine; Visit Provider Internal Medicine
DX: E66.01 Morbid (severe) obesity due to excess calories (principal); G47.33 Obstructive sleep apnea (adult) (pediatric); Z99.89 Dependence on other enabling machines and devices; R06.02 Shortness of breath
CPT/HCPCS: 99203

== ENCOUNTER → 2023-09-19 15:32 | Outpatient (BNVA) | payer OTHER, SELFPAY | PROVIDERS: PCP Internal Medicine; Referring Provider Internal Medicine; Visit Provider Internal Medicine ==

== ENCOUNTER 2023-09-21 14:27 | Outpatient (AMB) | payer OTHER, SELFPAY ==
[2023-09-21 14:26] VITALS: BP 142/98; PULSE 70; O2SAT 98; BMI 46.7
--- NOTE | 2023-09-21 14:26 | HO.NEPHOV ---
Vital Signs 09/21/23 14:26 Height 6 ft 1 in Weight 354 lb BMI 46.7 BP 142/98 H Blood Pressure Location Lt brachial Position Sitting Pulse 70 Pulse Source Pulse Oximeter Pulse Oximetry (%) 98 Oxygen Delivery Method Room Air Intake Visit Reasons: Hypokalemia/ Conf Wheel Aligner Required: No Accompanied by: Self / Same As Patient Allergies Seasonal Allergies Allergy (Intermediate, Verified 09/21/23 14:27) Itching lisinopril Adverse Reaction (Unknown, Verified 09/21/23 14:27) cough Medication List - Last Reconciled 09/21/23 by Markos Machado MD atenolol 100 mg PO DAILY losartan 25 mg PO DAILY spironolactone 50 mg PO QAM HPI Comments Details: . Kevin is a pleasant 43-year-old man with a history of hypertension for quite some time in the setting of obstructive sleep apnea and elevated BMI. He was on atenolol with chlorthalidone and blood pressure was controlled. However he had persistent hypokalemia requiring potassium supplementation. Due to recurrent hypokalemia chlorthalidone was discontinued. Blood pressure is suboptimal therefore spironolactone was added. He was also given losartan 25 mg a day. He has been referred for further evaluation for hypokalemia and hypertension. He has been using CPAP regularly. [facility] Medical History Rash Obesity Tinea versicolor Neutropenia Hypertension, essential Surgical History No pertinent past surgical history Family History Father Unknown family medical history Mother HTN (hypertension) Afib CHF (congestive heart failure) Sister Diabetes mellitus HTN (hypertension) Family history of malignant neoplasm of uterus CKD (chronic kidney disease) Social History Housing: House Alcohol intake: never Patient Tobacco Use Status: Never used Tobacco e-Cigarette/Vaping Use: Never Used Current occupational status: employed Cognitive needs: No Hearing needs: No Vision needs: Yes Physical Exam Vital Signs: Last Vital Signs Pulse 70 09/21/23 14:26 BP 142/98 H 09/21/23 14:26 Pulse Ox 98 09/21/23 14:26 Oxygen Delivery Method Room Air 09/21/23 14:26 BMI result Body Mass Index 46.7 Const General: comfortable; No acute distress Orientation/consciousness: patient oriented x3 Eyes General: appearance normal, both eyes and all related structures Visual Lazo: normal visual lazo by confrontation Neck Neck: Yes supple and Yes no JVD Resp Effort & Inspection: normal respiratory effort and respiratory effort not decreased Auscultation: rhonchi Cardio Palpation: no palpable S3 and no palpable S4 Heart sounds: no rubs GI Inspection: Yes normal to inspection Palpation (GI): Soft to palpation Percussion: Yes normal to percussion Auscultation: normal bowel sounds General: Yes no CVA tenderness Back/Spine/Pelvis Back: no CVA tenderness Skin General skin exam: no petechiae and no purpura Neuro General: patient oriented x3 and no focal motor deficits Extrem General: No clubbing and No edema Results Reviewed Nephrology Results: Sodium 143 mmol/L (135-145) 08/11/23 Potassium 3.5 mmol/L (3.3-5.1) 08/11/23 Chloride 110 mmol/L (96-108) H 08/11/23 Carbon Dioxide 25 mmol/L (22-29) 08/11/23 BUN 10 mg/dL (9-16) 08/11/23 Creatinine 1.08 mg/dL (0.5-1.4) 08/11/23 Calcium 8.9 mg/dL (8.4-10.2) 08/11/23 Urine Protein Negative mg/dL (Neg-Trace) 09/15/23 Urine Creatinine 183.64 mg/dL 09/15/23 Assessment & Plan Assessment & Plan (1) Hypokalemia: Code(s): E87.6 - Hypokalemia Category: Medical (2) Resistant hypertension: Code(s): I1A.0 - Resistant hypertension Category: Medical Plan . 43-year-old man with hypertension and elevated BMI with hypokalemia. The hypokalemia might have been due to the use of chlorthalidone. There was no alkalosis. However with a combination of hypertension and hypokalemia hyperaldosteronism needs to be ruled out. Repeat lab work ordered At present blood pressure is suboptimal but better than last visit Keep losartan 25 mg and spironolactone 50 mg and atenolol Encouraged him to stay on low-sodium diet. serum aldosterone and plasma renin activity ar epending If abnormal I would have to stop spironolactone and losartan and recheck PA/PRA ratio. I have discussed importance of weight loss and continued use of CPAP to optimize blood pressure control. Orders: Orders Basic Metabolic Panel Today E87.6 - Hypokalemia, I1A.0 - Resistant hypertension Coding Level of Care Code Est Pt Level 4 (15755) Diagnoses Hypokalemia E87.6 Resistant hypertension I1A.0
== END 2023-09-21 14:49 | disposition home or self-care (01) ==
LOC: HO.HKA 14:27
PROVIDERS: PCP Internal Medicine; Visit Provider Internal Medicine Hypertension Specialist
DX: E87.6 Hypokalemia (principal); I1A.0 Resistant hypertension
CPT/HCPCS: 99214

== ENCOUNTER → 2023-09-21 14:27 | Outpatient (BNVA) | payer OTHER, SELFPAY | PROVIDERS: PCP Internal Medicine; Visit Provider Internal Medicine Hypertension Specialist ==

== ENCOUNTER 2023-09-25 14:58 | Outpatient (AMB) | payer OTHER, SELFPAY ==
[2023-09-26 08:41] VITALS: PULSE 59; O2SAT 99; BMI 47.0
--- NOTE | 2023-09-26 08:41 | A.OFFVIS_ITS ---
Vital Signs 09/26/23 08:41 Height 6 ft 1 in Weight 356 lb 0.745 oz BMI 47.0 Pulse 59 Pulse Source Pulse Oximeter Pulse Oximetry (%) 99 Oxygen Delivery Method Room Air Intake Visit Reasons: 6MW/Mirza Allergies Seasonal Allergies Allergy (Intermediate, Verified 09/26/23 08:41) Itching lisinopril Adverse Reaction (Unknown, Verified 09/26/23 08:41) cough Medication List - Last Reconciled 09/26/23 by Micaela Galvan LPN atenolol 100 mg PO DAILY losartan 25 mg PO DAILY spironolactone 50 mg PO QAM [facility] Medical History Rash Obesity Tinea versicolor Neutropenia Hypertension, essential Surgical History No pertinent past surgical history Family History Father Unknown family medical history Mother HTN (hypertension) Afib CHF (congestive heart failure) Sister Diabetes mellitus HTN (hypertension) Family history of malignant neoplasm of uterus CKD (chronic kidney disease) Social History Housing: House Alcohol intake: never Patient Tobacco Use Status: Never used Tobacco e-Cigarette/Vaping Use: Never Used Current occupational status: employed Cognitive needs: No Hearing needs: No Vision needs: Yes Physical Exam Vital Signs: Last Vital Signs Pulse 59 09/26/23 08:41 Pulse Ox 99 09/26/23 08:41 Oxygen Delivery Method Room Air 09/26/23 08:41 BMI result Body Mass Index 47.0 Office Procedures 6 Minute Walk Time:: 15:00 SPO2 % at rest: 99 Pulse at rest: 59 SPO2 % during excercise: 96 Pulse during excercise: 86 SPO2 % after excercise: 97 Pulse after excercise: 76 Distance in yards walked: 300 Joelle Score: 0 Performance Observations:: Kevin walked on level ground without assistance, he walked on room for the entire walk. His SPO2 remained stable at 96-97% no supplemental O2 needed. 63077 - 6 Minute Walk Spirometry Testing Spirometry Comments: Spirometry done in the office, Dr. Wilson has the results results scanned to his chart. 57604- Spirometry Assessment & Plan Assessment & Plan (1) Short of breath on exertion: Comment: Patient has Asthma/COPD Code(s): R06.02 - Shortness of breath Category: Medical Plan: 6 minutes walk to check for exertional hypoxemia (2) Obstructive sleep apnea on CPAP: Comment: Patient is compliant and using CPAP regularly Code(s): G47.33 - Obstructive sleep apnea (adult) (pediatric); Z99.89 - Dependence on other enabling machines and devices Category: Medical Plan: 6 minutes walk to check for exertional hypoxemia Orders: Orders AMB Spirometry Testing 09/25/23 R06.02 - Shortness of breath AMB 6 minute walk 09/25/23 R06.02 - Shortness of breath Coding Level of Care Code Established Pt Est Pt Level 1 (84959) Patient Type Established Diagnoses Short of breath on exertion R06.02 Obstructive sleep apnea on CPAP G47.33; Z99.89 CPT Codes Coding ([id number]) Spirometry - CPT: 37919- Spirometry ([id number]) Comment NURSE VISIT ONLY
[2023-09-26 08:43] VITALS: PULSE 59; O2SAT 99
== END 2023-09-25 16:20 | disposition home or self-care (01) ==
PROVIDERS: PCP Internal Medicine; Visit Provider Internal Medicine
DX: R06.02 Shortness of breath (principal); G47.33 Obstructive sleep apnea (adult) (pediatric); Z99.89 Dependence on other enabling machines and devices

== ENCOUNTER → 2023-09-25 14:58 | Outpatient (BNVA) | payer OTHER, SELFPAY | PROVIDERS: PCP Internal Medicine; Visit Provider Internal Medicine | DX: J44.9 Chronic obstructive pulmonary disease, unspecified (principal); G47.33 Obstructive sleep apnea (adult) (pediatric); Z79.899 Other long term (current) drug therapy; Z99.89 Dependence on other enabling machines and devices | CPT/HCPCS: 94010; 94618; 99211 ==

== ENCOUNTER 2023-10-13 15:54 | Outpatient (REF) | payer OTHER, SELFPAY ==
[2023-10-13 16:14] LABS: MANUAL DIFF FLAG NO
[2023-10-13 16:32] LABS: Basophils Absolute Auto 0.1 X10*3/uL (0.0-0.2); Basophils Percent Auto 0.8 % (0-2); Eosinophils Absolute Auto 0.2 X10*3/uL (0.0-0.4); Eosinophils Percent Auto 2.8 % (0-4); Hematocrit 43.7 % (42.0-52.0); Hemoglobin 14.7 g/dl (14.0-18.0); Imm Gran Abs Auto 0.01 X10*3/uL (0.00-0.03); Imm Gran Pct Auto 0.2 % (0.0-0.4); Lymphocytes Percent Auto 48.9 % (20-40); Mean Corpuscular HGB Conc 33.6 g/dl (31.0-36.0); Mean Corpuscular Hemoglobin 27.5 pg (27.0-33.0); Mean Corpuscular Volume 81.7 fL (80.0-98.0); Mean Platelet Volume 10.1 fL (9.4-12.4); Monocytes Absolute Auto 0.8 X10*3/uL (0.1-1.2); Monocytes Percent Auto 12.5 % (2-11); Neutrophils Absolute Auto 2.1 x10*3/uL (2.0-8.3); Neutrophils Percent Auto 34.8 % (45-73); Platelet Count 267 X10*3/uL (160-400); Red Blood Count 5.35 X10*6/uL (4.60-5.80); White Blood Count 6.1 X10*3/uL (4.8-10.8)
[2023-10-13 21:28] LABS: Alanine Aminotransferase 26 U/L (0-40); Albumin Level 4.4 g/dL (3.5-5.0); Alkaline Phosphatase 65 U/L (39-117); Anion Gap 14 (12-20); Aspartate Amino Transferase 25 U/L (5-37); Bilirubin Total 0.3 mg/dL (0.0-1.0); Blood Urea Nitrogen 11 mg/dL (9-16); Calcium 9.6 mg/dL (8.4-10.2); Carbon Dioxide 23 mmol/L (22-29); Chloride 108 mmol/L (96-108); Estimated Glomerular Filt Rate > 60; Glucose Random 92 mg/dL (60-115); Potassium 3.9 mmol/L (3.3-5.1); Sodium 141 mmol/L (135-145); Total Protein 7.5 g/dL (6.5-8.0)
== END 2023-10-13 15:55 | disposition home or self-care (01) ==
LOC: HO.LAB 15:54
PROVIDERS: PCP Internal Medicine; Visit Provider Internal Medicine Hypertension Specialist
DX: I10 Essential (primary) hypertension (principal); D70.8 Other neutropenia
CPT/HCPCS: 36415; 80053; 85025

== ENCOUNTER 2023-10-26 15:41 | Outpatient (AMB) | payer OTHER, SELFPAY ==
[2023-10-26 15:47] VITALS: BP 128/78; PULSE 70; O2SAT 97; BMI 47.6
--- NOTE | 2023-10-26 15:47 | HO.NEPHOV ---
Vital Signs 10/26/23 15:47 Height 6 ft 1 in Weight 361 lb BMI 47.6 BP 128/78 Blood Pressure Location Lt brachial Position Sitting Pulse 70 Pulse Source Pulse Oximeter Pulse Oximetry (%) 97 Oxygen Delivery Method Room Air Intake Visit Reasons: Hypokalemia/ Conf Inspector Hairspring Truing Required: No Accompanied by: Self / Same As Patient Allergies Seasonal Allergies Allergy (Intermediate, Verified 10/26/23 15:49) Itching lisinopril Adverse Reaction (Unknown, Verified 10/26/23 15:49) cough Medication List - Last Reconciled 10/26/23 by Markos Machado MD atenolol 100 mg PO DAILY losartan 25 mg PO DAILY spironolactone 50 mg PO QAM HPI Comments Details: . Kevin is a pleasant 43-year-old man with a history of hypertension for quite some time in the setting of obstructive sleep apnea and elevated BMI. He was on atenolol with chlorthalidone and blood pressure was controlled. However he had persistent hypokalemia requiring potassium supplementation. Due to recurrent hypokalemia chlorthalidone was discontinued. Blood pressure is suboptimal therefore spironolactone was added. He was also given losartan 25 mg a day. He has been referred for further evaluation for hypokalemia and hypertension. He has been using CPAP regularly. 10/26/23 Tolerating meds No new issues [facility] Medical History Rash Obesity Tinea versicolor Neutropenia Hypertension, essential Surgical History No pertinent past surgical history Family History Father Unknown family medical history Mother HTN (hypertension) Afib CHF (congestive heart failure) Sister Diabetes mellitus HTN (hypertension) Family history of malignant neoplasm of uterus CKD (chronic kidney disease) Social History Housing: House Alcohol intake: never Patient Tobacco Use Status: Never used Tobacco e-Cigarette/Vaping Use: Never Used Current occupational status: employed Cognitive needs: No Hearing needs: No Vision needs: Yes Physical Exam Vital Signs: Last Vital Signs Pulse 70 10/26/23 15:47 BP 128/78 10/26/23 15:47 Pulse Ox 97 10/26/23 15:47 Oxygen Delivery Method Room Air 10/26/23 15:47 BMI result Body Mass Index 47.6 Const General: comfortable; No acute distress Orientation/consciousness: patient oriented x3 Eyes General: appearance normal, both eyes and all related structures Visual Lazo: normal visual lazo by confrontation Neck Neck: Yes supple and Yes no JVD Resp Effort & Inspection: normal respiratory effort and respiratory effort not decreased Auscultation: rhonchi Cardio Palpation: no palpable S3 and no palpable S4 Heart sounds: no rubs GI Inspection: Yes normal to inspection Palpation (GI): Soft to palpation Percussion: Yes normal to percussion Auscultation: normal bowel sounds General: Yes no CVA tenderness Back/Spine/Pelvis Back: no CVA tenderness Skin General skin exam: no petechiae and no purpura Neuro General: patient oriented x3 and no focal motor deficits Extrem General: No clubbing and No edema Results Reviewed Nephrology Results: Hgb 14.7 g/dl (14.0-18.0) 10/13/23 WBC 6.1 X10*3/uL (4.8-10.8) 10/13/23 Plt Count 267 X10*3/uL (160-400) 10/13/23 Sodium 141 mmol/L (135-145) 10/13/23 Potassium 3.9 mmol/L (3.3-5.1) 10/13/23 Chloride 108 mmol/L (96-108) 10/13/23 Carbon Dioxide 23 mmol/L (22-29) 10/13/23 BUN 11 mg/dL (9-16) 10/13/23 Creatinine 1.00 mg/dL (0.5-1.4) 10/13/23 Calcium 9.6 mg/dL (8.4-10.2) 10/13/23 Urine Protein Negative mg/dL (Neg-Trace) 09/15/23 Urine Creatinine 183.64 mg/dL 09/15/23 Assessment & Plan Assessment & Plan (1) Hypokalemia: Code(s): E87.6 - Hypokalemia Category: Medical (2) Resistant hypertension: Code(s): I1A.0 - Resistant hypertension Category: Medical Plan . 43-year-old man with hypertension and elevated BMI with hypokalemia. The hypokalemia might have been due to the use of chlorthalidone. There was no alkalosis. However with a combination of hypertension and hypokalemia hyperaldosteronism needed to be ruled out. PA and PRA NOT suggestive of hyperaldosteronism At present blood pressure is well controlled Keep losartan 25 mg and spironolactone 50 mg and atenolol Encouraged him to stay on low-sodium diet. I have discussed importance of weight loss and continued use of CPAP to optimize blood pressure control. Orders: Orders Basic Metabolic Panel 3 Months I1A.0 - Resistant hypertension Medications: Refilled spironolactone 50 mg PO QAM 90 tabs 1RF atenolol 100 mg PO DAILY 90 tabs 0RF losartan 25 mg PO DAILY 90 tabs 1RF Coding Level of Care Code Est Pt Level 4 (93853) Diagnoses Hypokalemia E87.6 Resistant hypertension I1A.0
== END 2023-10-26 15:58 | disposition home or self-care (01) ==
PROVIDERS: PCP Internal Medicine; Visit Provider Internal Medicine Hypertension Specialist
DX: E87.6 Hypokalemia (principal); I1A.0 Resistant hypertension
CPT/HCPCS: 99214

== ENCOUNTER → 2023-10-26 15:41 | Outpatient (BNVA) | payer OTHER, SELFPAY | PROVIDERS: PCP Internal Medicine; Visit Provider Internal Medicine Hypertension Specialist ==

== ENCOUNTER 2023-11-07 15:33 | Outpatient (AMB) | payer OTHER, SELFPAY ==
[2023-11-07 15:34] VITALS: BP 138/88; PULSE 67; O2SAT 97; BMI 48.5
--- NOTE | 2023-11-07 15:34 | MHC.PC.OV ---
Vital Signs 11/07/23 15:34 Height 6 ft 1 in Weight 367 lb 8 oz BMI 48.5 BP 138/88 Blood Pressure Location Lt brachial Position Sitting Pulse 67 Pulse Source Pulse Oximeter Pulse Oximetry (%) 97 Oxygen Delivery Method Room Air Intake Visit Reasons: PE Allergies Seasonal Allergies Allergy (Intermediate, Verified 11/07/23 15:35) Itching lisinopril Adverse Reaction (Unknown, Verified 11/07/23 15:35) cough Medication List - Last Reconciled 11/07/23 by Kenneth Ceron MD atenolol 100 mg PO DAILY losartan 25 mg PO DAILY spironolactone 50 mg PO QAM Tobacco use date assessed: 11/07/23 Dental Screening Dental Screen Date: 11/07/23 Did you have a dental visit in the last 12 months?: Yes Did you have a dental problem in the last 6 months where you did not have access to dental care?: No Was dental information given to patient?: Patient has dentist HPI PE HPI Details Patient is a 43-year-old gentleman came in today for physical examination Blood pressure is controlled now, patient is seeing Dr. Machado nephrology All blood pressure medications through them Labs done recently reviewed He offers no complaints Exercising more and trying to lose weight going to gym Due for Tdap, vaccine provided today Follow-up 1 year [facility] Medical History Rash Obesity Tinea versicolor Neutropenia Hypertension, essential Surgical History No pertinent past surgical history Family History Father Unknown family medical history Mother HTN (hypertension) Afib CHF (congestive heart failure) Sister Diabetes mellitus HTN (hypertension) Family history of malignant neoplasm of uterus CKD (chronic kidney disease) Social History Housing: House Alcohol intake: never Patient Tobacco Use Status: Never used Tobacco e-Cigarette/Vaping Use: Never Used service: No Current occupational status: employed Cognitive needs: No Hearing needs: No Vision needs: Yes Questionnaire PHQ-9 Over the last 2 weeks, how often have you been bothered by any of the following problems? 1. Little interest or pleasure in doing things: several days 2. Feeling down, depressed, or hopeless: several days 3. Trouble falling or staying asleep, or sleeping too much: not at all 4. Feeling tired or having little energy: nearly every day 5. Poor appetite or overeating: several days 6. Feeling bad about yourself - or that you are a failure or have let yourself or your family down: more than half the days 7. Trouble concentrating on things, such as reading the newspaper or watching television: several days 8. Moving or speaking so slowly that other people could have noticed. Or the opposite - being so fidgety or restless that you have been moving around a lot more than usual: not at all 9. Thoughts that you would be better off or of hurting yourself in some way: not at all Total score: 9 Depression Screening Interpretation: Negative Depression Screening Done: Yes 71189 - PHQ-9 Billing: Yes Source: Developed by Drs. Tyrel Jiang, Jackie Dukes, Memo Ellis and colleagues, with an educational belinda from [employer]. Thrive Questionnaire Date Thrive assessed: 11/07/23 I am a: Patient What is your living situation today?: I have a steady place to live Within the past 12 months, did the food you bought not last and you didn't have the money to get more?: Never true Within the past 12 months, did you worry whether your food would run out before you got money to buy more?: Never true Do you have trouble paying for medicines?: No Do you have trouble getting transportation to medical appointments?: No Do you have trouble paying your heating and electricity bill?: No Do you have trouble taking care of your child, family member or friend?: No Do you have trouble with day-to-day activities such as bathing, preparing meals, shopping, managing finances, etc.?: No Are you currently unemployed and looking for a job?: No Are you interested in more education?: No Please select the resources that you would like help with: None Currently or been in a relationship where the following occur: No concerns reported THRIVE Score: 0 AUDIT C Alcohol Use Questionnaire (AUDIT-C) 1. How often do you have a drink containing alcohol?: Never 3. How often do you have six or more drinks on one occasion?: Never Total Score: 0 Score Reviewed/Action Taken: Yes QUINCY-7 AMB Questionnaire QUINCY-7 Date QUINCY - 7 assessed: 11/07/23 Feeling nervous, anxious, or on edge: 2 = More than half the days Not being able to stop or control worryin = Nearly every day Worrying too much about different things: 3 = Nearly every day Trouble relaxin = More than half the days Being so restless that it is hard to sit still: 0 = Not at all Becoming easily annoyed or irritable: 1 = Several days Feeling afraid as if something awful might happen: 3 = Nearly every day Total QUINCY-7 score (0-4 normal; 5-9 mild; 10-14 moderate; 15-21 severe): 14 Source: Developed by Drs. Tyrel Jiang, Jackie Dukes, Memo Ellis and colleagues, with an educational belinda from [employer]. QUINCY-7 Assessment Billing QUINCY-7 Assessment Tool: QUINCY-7 Assessment 54102 Review of Systems Const Denies chills, Denies fever(s) and Denies headache(s) Eyes Denies blurry vision ENT Denies headache(s), Denies nasal discharge, Denies nasal obstruction, Denies odynophagia and Denies sinus pain Card Denies chest pain at rest and Denies chest pain with activity Resp Denies cough and Denies hemoptysis GI Denies diarrhea, Denies odynophagia, Denies vomiting and Denies hematemesis Reports as per HPI Musc Denies abnormal gait Skin/Breast Reports as per HPI Neuro Denies Neuro-related abnormal movements, Denies Abnormal speech present, Denies abnormal gait, Denies headache(s) and Denies Sensory deficit (Neuro) Psych Denies mood swings and Denies paranoia Endo Reports as per HPI Seth/Lymph Reports as per HPI Aller/Immun Reports as per HPI Physical exam (Primary Care) Vital Signs: Last Vital Signs Pulse 67 11/07/23 15:34 BP 138/88 11/07/23 15:34 Pulse Ox 97 11/07/23 15:34 Oxygen Delivery Method Room Air 11/07/23 15:34 BMI result Body Mass Index 48.5 Tobacco/Smoking Status: Tobacco use Status Tobacco use date assessed 11/07/23 11/07/23 15:37 Patient Tobacco Use Status Never used Tobacco 11/07/23 15:37 e-Cigarette/Vaping Use Never Used 11/07/23 15:37 PHQ-9: PHQ-9 Score PHQ-9: Total score 9 11/07/23 16:18 Depression Screening Interpretation: Negative Thrive Assessment: Date of Thrive Assessment Date Thrive assessed 11/07/23 11/07/23 15:40 Currently or been in a relationship where the following occur: No concerns reported Const General: cooperative, comfortable and no acute distress Orientation/consciousness: patient oriented x3 HENMT Head: Yes normocephalic and Yes atraumatic Eyes General: appearance normal, both eyes and all related structures Pupils: Equal, round and reactive pupils present EOM: EOMs intact bilaterally Neck Neck: Yes supple and No lymphadenopathy Thyroid: Thyroid normal Lymphatic: no lymphadenopathy noted Resp Effort & Inspection: normal respiratory effort and able to speak in complete sentences Auscultation: clear to auscultation bilaterally Cardio Heart sounds: S1 normal heart sound present and S2 normal heart sound present GI Palpation (GI): Soft to palpation and nontender Auscultation: normal bowel sounds General: Yes no CVA tenderness Back/Spine/Pelvis Back: no CVA tenderness Skin General skin exam: elasticity normal and turgor normal Neuro General: patient oriented x3 and gait normal Cranial nerves: Yes Equal, round and reactive pupils present Speech: No Abnormal speech present Sensory Exam: No Sensory deficit (Neuro) Coordination: tandem gait normal and Romberg test negative Extrem General: Yes normal exam except as noted and No edema Immunizations Boostrix Tdap 2.5 Lf unit-8 mcg-5 Lf/0.5 mL intramuscular syringe Performing Provider: Kenneth Ceron MD Performing Location: [facility] [place] Primary Care-[facility] Administered by: Zuri Stoll CMA on 11/07/23 16:17 Dose Route Admin Location Dispensed Lot Number Expiration Date [employer] 0.5 mL IM Left Deltoid 0.5 mL [id number] 12/16/25 49001-805-09 [employer] VIS Given Date VIS Provided VIS Publication Date 11/07/23 Single Vaccine 20 Eligibility Eligibility Date Funding Source Not [facility] Eligible 11/07/23 Private Assessment and Plan Assessment & Plan (1) Morbid obesity due to excess calories: Comment: THIS GENTLEMAN SUFFERS FROM MORBID OBESITY. Code(s): E66.01 - Morbid (severe) obesity due to excess calories (2) Annual physical exam: Code(s): Z00.00 - Encounter for general adult medical examination without abnormal findings Plan Patient is a 43-year-old gentleman came in today for physical examination Blood pressure is controlled now, patient is seeing Dr. Machado nephrology All blood pressure medications through them Labs done recently reviewed He offers no complaints Exercising more and trying to lose weight going to gym Due for Tdap, vaccine provided today Follow-up 1 year Orders: Orders TDaP Immunization Today Z23 - Encounter for immunization Coding Level of Care Code Est Pt Prev Care 40-64y(66703) Diagnoses Morbid obesity due to excess calories E66.01 Annual physical exam Z00.00 Additional Codes QUINCY-7 Assessment Billing - QUINCY-7 Assessment Tool: QUINCY-7 Assessment 51644 ([id number])
== END 2023-11-07 16:14 | disposition home or self-care (01) ==
PROVIDERS: PCP Internal Medicine; Visit Provider Internal Medicine
DX: Z00.00 Encounter for general adult medical examination without abnormal findings (principal); E66.01 Morbid (severe) obesity due to excess calories; Z68.42 Body mass index [BMI] 45.0-49.9, adult; Z23 Encounter for immunization
CPT/HCPCS: 90471; 90715; 99396

== ENCOUNTER 2024-01-13 09:59 | Outpatient (REF) | payer OTHER, SELFPAY ==
[2024-01-13 11:46] LABS: MANUAL DIFF FLAG NO
[2024-01-13 11:50] LABS: Basophils Percent Auto 0.7 % (0-2); Eosinophils Absolute Auto 0.1 X10*3/uL (0.0-0.4); Eosinophils Percent Auto 2.2 % (0-4); Hematocrit 45.5 % (42.0-52.0); Hemoglobin 14.6 g/dl (14.0-18.0); Imm Gran Abs Auto 0.01 X10*3/uL (0.00-0.03); Imm Gran Pct Auto 0.2 % (0.0-0.4); Lymphocytes Absolute Auto 2.5 X10*3/uL (1.2-4.9); Lymphocytes Percent Auto 44.8 % (20-40); Mean Corpuscular HGB Conc 32.1 g/dl (31.0-36.0); Mean Corpuscular Hemoglobin 26.8 pg (27.0-33.0); Mean Corpuscular Volume 83.5 fL (80.0-98.0); Mean Platelet Volume 10.3 fL (9.4-12.4); Monocytes Absolute Auto 0.7 X10*3/uL (0.1-1.2); Monocytes Percent Auto 12.2 % (2-11); Neutrophils Absolute Auto 2.2 x10*3/uL (2.0-8.3); Neutrophils Percent Auto 39.9 % (45-73); Platelet Count 298 X10*3/uL (160-400); Red Blood Count 5.45 X10*6/uL (4.60-5.80); Red Cell Distribution Width 14.6 % (11.0-16.0); White Blood Count 5.6 X10*3/uL (4.8-10.8)
[2024-01-13 12:05] LABS: Alanine Aminotransferase 29 U/L (0-40); Albumin Level 4.5 g/dL (3.5-5.0); Alkaline Phosphatase 62 U/L (39-117); Anion Gap 11 (12-20); Aspartate Amino Transferase 28 U/L (5-37); Bilirubin Total 0.4 mg/dL (0.0-1.0); Blood Urea Nitrogen 11 mg/dL (9-16); Calcium 9.6 mg/dL (8.4-10.2); Carbon Dioxide 25 mmol/L (22-29); Chloride 107 mmol/L (96-108); Estimated Glomerular Filt Rate > 60; Glucose Random 112 mg/dL (60-115); Potassium 3.9 mmol/L (3.3-5.1); Sodium 139 mmol/L (135-145); Total Protein 7.8 g/dL (6.5-8.0)
== END 2024-01-13 10:00 | disposition home or self-care (01) ==
LOC: HO.HMGCLDS 09:59
PROVIDERS: PCP Internal Medicine; Referring Provider Internal Medicine Hypertension Specialist; Visit Provider Internal Medicine
DX: I10 Essential (primary) hypertension (principal); D70.8 Other neutropenia; G47.33 Obstructive sleep apnea (adult) (pediatric); Z99.89 Dependence on other enabling machines and devices; R06.02 Shortness of breath; M25.471 Effusion, right ankle; M25.472 Effusion, left ankle
CPT/HCPCS: 36415; 80053; 85025

== ENCOUNTER 2024-01-24 14:31 | Outpatient (AMB) | payer OTHER, SELFPAY ==
[2024-01-24 14:34] VITALS: BP 138/84; PULSE 77; O2SAT 96; BMI 50.3
--- NOTE | 2024-01-24 14:34 | MHC.PC.OV ---
Vital Signs 01/24/24 14:34 Height 6 ft 1 in Weight 381 lb 4 oz BMI 50.3 BP 138/84 Blood Pressure Location Lt brachial Position Sitting Pulse 77 Pulse Source Pulse Oximeter Pulse Oximetry (%) 96 Oxygen Delivery Method Room Air Intake Visit Reasons: Discomfort Kidney area Allergies Seasonal Allergies Allergy (Intermediate, Verified 01/24/24 14:34) Itching lisinopril Adverse Reaction (Unknown, Verified 01/24/24 14:34) cough Medication List - Last Reconciled 01/24/24 by Kenneth Ceron MD atenolol 100 mg PO DAILY losartan 25 mg PO DAILY spironolactone 50 mg PO QAM Tobacco use date assessed: 01/24/24 Dental Screening Dental Screen Date: 01/24/24 Did you have a dental visit in the last 12 months?: Yes Did you have a dental problem in the last 6 months where you did not have access to dental care?: No Was dental information given to patient?: Patient has dentist HPI Discomfort Kidney area HPI Details Patient is a 43-year-old gentleman came in today to talk about couple of medical problems Patient says that few days ago he felt twinges left side mid back and was concerned if it is his kidney Discomfort lasted momentarily and then got better At this time he does not have any discomfort UA done today showed no signs of infection or blood Patient was reassured, continue drinking plenty of water Also complaining of headache off and on mostly on the left side sometimes feels like throbbing Patient is not sure if it is due to clenching of teeth He did had a tooth infection on that side few days ago and had that headache He also wears head care for sleep apnea which can cause the headache There is a family history of migraine headache as well in his mother Headache last only few minutes and usually are in the morning when he takes his blood pressure medication There is no neurological deficit His exam is benign there is no photophobia his neuro exam is nonfocal At this point reassurance provided I did offer amitriptyline as a trial for migraine prevention Which patient has declined. [facility] Medical History Rash Obesity Tinea versicolor Neutropenia Hypertension, essential Surgical History No pertinent past surgical history Family History Father Unknown family medical history Mother HTN (hypertension) Afib CHF (congestive heart failure) Sister Diabetes mellitus HTN (hypertension) Family history of malignant neoplasm of uterus CKD (chronic kidney disease) Social History Housing: House Alcohol intake: never Patient Tobacco Use Status: Never used Tobacco e-Cigarette/Vaping Use: Never Used service: No Current occupational status: employed Cognitive needs: No Hearing needs: No Vision needs: Yes Questionnaire Thrive Questionnaire Date Thrive assessed: 01/24/24 I am a: Patient What is your living situation today?: I have a steady place to live Within the past 12 months, did the food you bought not last and you didn't have the money to get more?: Never true Within the past 12 months, did you worry whether your food would run out before you got money to buy more?: Never true Do you have trouble paying for medicines?: No Do you have trouble getting transportation to medical appointments?: No Do you have trouble paying your heating and electricity bill?: No Do you have trouble taking care of your child, family member or friend?: No Do you have trouble with day-to-day activities such as bathing, preparing meals, shopping, managing finances, etc.?: No Are you currently unemployed and looking for a job?: No Are you interested in more education?: No Please select the resources that you would like help with: None Currently or been in a relationship where the following occur: No concerns reported THRIVE Score: 0 AUDIT C Alcohol Use Questionnaire (AUDIT-C) 1. How often do you have a drink containing alcohol?: Never 3. How often do you have six or more drinks on one occasion?: Never Total Score: 0 Score Reviewed/Action Taken: Yes QUINCY-7 AMB Questionnaire QUINCY-7 Date QUINCY - 7 assessed: 11/07/23 Source: Developed by Drs. Tyrel Jiang, Jackie Dukes, Memo Ellis and colleagues, with an educational belinda from [employer]. Review of Systems Const Denies chills and Denies fever(s) ENT Denies epistaxis and Denies nasal discharge Card Denies chest pain Resp Denies chest congestion, Denies cough and Denies hemoptysis GI Denies diarrhea and Denies nausea Skin/Breast Denies rash Neuro Reports no additional complaints Psych Reports no additional complaints Endo Reports no additional complaints Physical exam (Primary Care) Vital Signs: Last Vital Signs Pulse 77 01/24/24 14:34 BP 138/84 01/24/24 14:34 Pulse Ox 96 01/24/24 14:34 Oxygen Delivery Method Room Air 01/24/24 14:34 BMI result Body Mass Index 50.3 Tobacco/Smoking Status: Tobacco use Status Tobacco use date assessed 01/24/24 01/24/24 14:36 Patient Tobacco Use Status Never used Tobacco 01/24/24 14:36 e-Cigarette/Vaping Use Never Used 01/24/24 14:36 Thrive Assessment: Date of Thrive Assessment Date Thrive assessed 01/24/24 01/24/24 14:36 Currently or been in a relationship where the following occur: No concerns reported Const General: cooperative, comfortable and no acute distress Orientation/consciousness: patient oriented x3 HENMT Head: Yes normocephalic Eyes General: appearance normal, both eyes and all related structures Neck Neck: Yes supple Resp Effort & Inspection: normal respiratory effort, no cough and no stridor Cardio Rhythm: regular rhythm Heart sounds: S1 normal heart sound present and S2 normal heart sound present Skin General skin exam: turgor normal Neuro General: patient oriented x3, tone normal and moves all extremities Extrem Right lower extremity: no edema Left lower extremity: no edema Office Procedures Flu Questionnaire Does the patient have a severe egg allergy?: No Does the patient have severe life threatening allergies?: No Does the patient have a fever or illness today?: No Has the patient ever had Guillain-[place] Syndrome?: No Has the patient ever had any past reaction to a flu shot?: No Results AMB Urinalysis, Automated UA Leukoctes 0 Darby/uL Last Edit by Ricky James CMA on 01/24/24 14:58 UA Nitrite Negative Last Edit by Ricky James CMA on 01/24/24 14:58 UA Urobilinogen 0.2 mg/dL Last Edit by Ricky James CMA on 01/24/24 14:58 UA Protein 0 mg/dL Last Edit by Ricky James CMA on 01/24/24 14:58 UA pH 6.0 Last Edit by Ricky James CMA on 01/24/24 14:58 UA Blood 0 Mateus/uL Last Edit by Ricky James CMA on 01/24/24 14:58 UA Specific [place] 1.030 Last Edit by Ricky James CMA on 01/24/24 14:58 UA Ketone Negative Last Edit by Ricky James CMA on 01/24/24 14:58 UA Bilirubin 0 mg/dL Last Edit by Ricky James CMA on 01/24/24 14:58 UA Glucose 0 mg/dL Last Edit by Ricky James CMA on 01/24/24 14:58 Immunizations Fluarix Triv [id number] (PF) 45 mcg (15 mcg x 3)/0.5 mL IM syringe Performing Provider: Kenneth Ceron MD Performing Location: [facility] [place] Adult Primary Care-[facility] Administered by: Zuri Stoll CMA on 01/24/24 15:16 Dose Route Admin Location Dispensed Lot Number Expiration Date [facility] [employer] 0.5 mL IM Left Deltoid 0.5 mL [id number] 09/23/24 59219-319-37 [employer] VIS Given Date VIS Provided VIS Publication Date 01/24/24 Single Vaccine 20 Eligibility Eligibility Date Funding Source Not [facility] Eligible 01/24/24 Private Results Reviewed Results Reviewed: Laboratory Last Values Urine pH (Auto) 6.0 01/24/24 14:57 Specific [place] (Auto) 1.030 01/24/24 14:57 Urine Protein (Auto) 0 mg/dL 01/24/24 14:57 Glucose (UA)(Auto) 0 mg/dL 01/24/24 14:57 Urine Ketones (Auto) Negative 01/24/24 14:57 Urine Blood (Auto) 0 Mateus/uL 01/24/24 14:57 Urine Nitrite (Auto) Negative 01/24/24 14:57 Urine Bilirubin (Auto) 0 mg/dL 01/24/24 14:57 Urine Urobilinogen (Auto) 0.2 mg/dL 01/24/24 14:57 Leukocyte Esterase (Auto) 0 Darby/uL 01/24/24 14:57 Coding Level of Care Code Est Pt Level 4 (13024) Diagnoses Other headache syndrome G44.89 Left flank pain R10.9 Assessment & Plan Assessment & Plan (1) Other headache syndrome: Code(s): G44.89 - Other headache syndrome Category: Medical (2) Left flank pain: Code(s): R10.9 - Unspecified abdominal pain Category: Medical Plan Patient is a 43-year-old gentleman came in today to talk about couple of medical problems Patient says that few days ago he felt twinges left side mid back and was concerned if it is his kidney Discomfort lasted momentarily and then got better At this time he does not have any discomfort UA done today showed no signs of infection or blood Patient was reassured, continue drinking plenty of water Also complaining of headache off and on mostly on the left side sometimes feels like throbbing Patient is not sure if it is due to clenching of teeth He did had a tooth infection on that side few days ago and had that headache He also wears head care for sleep apnea which can cause the headache There is a family history of migraine headache as well in his mother Headache last only few minutes and usually are in the morning when he takes his blood pressure medication There is no neurological deficit His exam is benign there is no photophobia his neuro exam is nonfocal At this point reassurance provided I did offer amitriptyline as a trial for migraine prevention Which patient has declined. Orders: Orders AMB Urinalysis Automated Today Z13.9 - Encounter for screening, unspecified Influenza [id number] Immunization Today Z23 - Encounter for immunization
== END 2024-01-24 15:57 | disposition home or self-care (01) ==
LOC: HO.HMCC 14:33
PROVIDERS: PCP Internal Medicine; Visit Provider Internal Medicine
DX: G44.89 Other headache syndrome (principal); R10.9 Unspecified abdominal pain; Z23 Encounter for immunization; Z13.9 Encounter for screening, unspecified

== ENCOUNTER → 2024-01-24 14:31 | Outpatient (BNVA) | payer OTHER, SELFPAY | PROVIDERS: PCP Internal Medicine; Visit Provider Internal Medicine | DX: G44.89 Other headache syndrome (principal); R10.9 Unspecified abdominal pain; Z23 Encounter for immunization | CPT/HCPCS: 81003; 90471; 90656 ==

== ENCOUNTER 2024-06-26 10:40 | Outpatient (REF) | payer OTHER, SELFPAY ==
[2024-06-26 14:48] LABS: Influenza A PCR NEGATIVE (Negative); Influenza B PCR NEGATIVE (Negative); Resp Syncy Virus RNA Qual PCR NEGATIVE (Negative); SARS COV2 PCR INHOUSE NEGATIVE (Negative)
== END 2024-06-26 10:41 | disposition home or self-care (01) ==
LOC: HO.LAB 10:40
PROVIDERS: Physician Assistant; PCP Internal Medicine
DX: B34.9 Viral infection, unspecified (principal); R09.89 Other specified symptoms and signs involving the circulatory and respiratory systems
CPT/HCPCS: 0241U

== ENCOUNTER 2024-06-26 10:40 | Outpatient (AMB) | payer OTHER, SELFPAY ==
[2024-06-26 10:58] VITALS: BP 120/86; PULSE 68; TEMP 37.1; O2SAT 98
--- NOTE | 2024-06-26 10:58 | AM.OFFWIN_ITS ---
Intake Vital Signs 06/26/24 10:58 Weight 385 lb BP 120/86 Blood Pressure Location Lt brachial Position Sitting Pulse 68 Pulse Source Pulse Oximeter Temp 98.8 F Temp Source Oral Pulse Oximetry (%) 98 Oxygen Delivery Method Room Air Intake Visit Reasons: EP Flu like symptoms Intake Note: Patient here for vomiting, diarrhea, fatigued, SOB which has started around monday. Patient Tobacco Use Status: Never used Tobacco Allergies Seasonal Allergies Allergy (Intermediate, Verified 06/26/24 11:06) Itching lisinopril Adverse Reaction (Unknown, Verified 06/26/24 11:06) cough Do you need a note to return to daycare/school/sports/work: Yes HPI HPI Comments History of Present Illness Details History of Present Illness - The patient is a 43 year old male pres enting with flu-like symptoms and gastrointestinal complaints for 2 days. - Reported an episode of nausea, copious vomiting, and diarrhea two days ago post-consumption of Jayy water, with vomiting recently resolved but diarrhea persisting. No blood in vomitus or stools. - Noted associated symptoms include sign ificant fatigue, throbbing headache on the right side, lightheadedness, shortness of breath, and generalized muscle soreness potentially linked to recent exercise. - No fever reported with minimal fluctua tions in body temperature. Sweating episodes occurred. - Past medical history includes obstruct mathieu sleep apnea managed with CPAP. - Recent history of dietary restrictions for weight management, completed before onset of symptoms. - Initially managed with DayQuil, now di scontinued due to concerns about interactions with hypertension treatment. Physical Exam General: Cooperative, healthy appearing, comfortable, no acute distress and well developed Orientation: Patient oriented x3 Limitations: No limitations Head: Throbbing on the right side Ears: Hearing grossly normal bilaterally, TM's normal bilaterally Nose: Normal External nose present Face and sinus: Normal facial exam Mouth/throat: moist mucosa, normal posterior oropharynx, no exudates or erythema noted Eyes: Appearance normal, both eyes and all related structures Neck: Normal visual inspection and Yes full ROM Respiratory: Normal respiratory effort, able to speak in complete sentences. GI: soft, no TTP, negative harmon's, negative mcburney's Skin: No rashes or lesions noted Neuro: Patient oriented x3, Extremities: Normal to inspection, [facility] Medical History Rash Obesity Tinea versicolor Neutropenia Hypertension, essential Surgical History No pertinent past surgical history Family History Father Unknown family medical history Mother HTN (hypertension) Afib CHF (congestive heart failure) Sister Diabetes mellitus HTN (hypertension) Family history of malignant neoplasm of uterus CKD (chronic kidney disease) Social History Housing: House Alcohol intake: never Patient Tobacco Use Status: Never used Tobacco e-Cigarette/Vaping Use: Never Used service: No Current occupational status: employed Cognitive needs: No Hearing needs: No Vision needs: Yes Review of Systems Const All systems reviewed & are unremarkable except as noted in HPI and below Physical Exam Vital Signs: Last Vital Signs Temp 98.8 F 06/26/24 10:58 Pulse 68 06/26/24 10:58 BP 120/86 06/26/24 10:58 Pulse Ox 98 06/26/24 10:58 Oxygen Delivery Method Room Air 06/26/24 10:58 Assessment & Plan Assessment & Plan (1) Acute viral syndrome: Code(s): B34.9 - Viral infection, unspecified Plan: VSS, pt well appearing and abdominal exam unremarkable. Testing for influenza, COVID-19, and RSV is initiated to determine the viral etiology of the patient's symptoms,if all negative, likely norovirus given the gastrointestinal complain ts. The patient is advised on supportive care practices to optimize recovery, including staying well-hydrated with small, manageable sips of fluids such as low-sugar Gatorade or electrolyte drinks. I recommend adherence to the BRAT diet to ease gastrointestinal symptoms, providing nutritional support for recovery. Infection control measures are underscored, emphasizing the critical role of soap and water hygiene along with effective sanitation practices using bleach- based products to address norovirus' hunter nature. Symptomatic relief with acetaminophen is advised for fever management. I will provide further guidance based on the diagnostic testing results expected later. Patient was informed and verbally consented to the use of an ambient scribe for clinic note documentation during this visit. Orders: Orders SARS-CoV2/FLU/RSV Today R09.89 - Other specified symptoms and signs involving the circulatory and respiratory systems Coding Level of Care Code Est Pt Level 3 (22032) Diagnoses Acute viral syndrome B34.9
== END 2024-06-26 12:08 | disposition home or self-care (01) ==
PROVIDERS: PCP Internal Medicine; Visit Provider Physician Assistant
DX: B34.9 Viral infection, unspecified (principal)

== ENCOUNTER 2024-07-31 16:05 | Outpatient (REF) | payer OTHER, SELFPAY ==
[2024-07-31 17:31] LABS: Anion Gap 12 (12-20); Blood Urea Nitrogen 12 mg/dL (9-16); Calcium 9.3 mg/dL (8.4-10.2); Carbon Dioxide 25 mmol/L (22-29); Chloride 105 mmol/L (96-108); Estimated Glomerular Filt Rate > 60; Glucose Random 82 mg/dL (60-115); Potassium 3.3 mmol/L (3.3-5.1); Sodium 139 mmol/L (135-145)
== END 2024-07-31 16:06 | disposition home or self-care (01) ==
LOC: HO.LAB 16:05
PROVIDERS: PCP Internal Medicine; Visit Provider Internal Medicine Hypertension Specialist
DX: I1A.0 Resistant hypertension (principal); E87.6 Hypokalemia
CPT/HCPCS: 36415; 80048

== ENCOUNTER 2024-08-05 15:55 | Outpatient (AMB) | payer OTHER, SELFPAY ==
[2024-08-05 15:56] VITALS: BP 162/102; PULSE 77; O2SAT 98; BMI 51.7
--- NOTE | 2024-08-05 15:56 | HO.NEPHOV_ITS ---
Vital Signs 08/05/24 15:56 08/05/24 16:10 Height 6 ft 1 in Weight 392 lb BMI 51.7 BP 162/102 H 140/100 H Blood Pressure Location Rt brachial Rt brachial Position Sitting Sitting Pulse 77 Pulse Source Pulse Oximeter Pulse Oximetry (%) 98 Oxygen Delivery Method Room Air Intake Visit Reasons: FU/ Conf Game Developer Required: No Accompanied by: Self / Same As Patient Allergies Seasonal Allergies Allergy (Intermediate, Verified 08/05/24 15:59) Itching lisinopril Adverse Reaction (Unknown, Verified 08/05/24 15:59) cough Medication List - Last Reconciled 08/05/24 by Markos Machado MD atenolol 100 mg PO DAILY losartan 25 mg PO DAILY spironolactone 50 mg PO QAM HPI Comments Details: . Kevin is a pleasant 43-year-old man with a history of hypertension for quite some time in the setting of obstructive sleep apnea and elevated BMI. He was on atenolol with chlorthalidone and blood pressure was controlled. However he had persistent hypokalemia requiring potassium supplementation. Due to recurrent hypokalemia chlorthalidone was discontinued. Blood pressure is suboptimal therefore spironolactone was added. He was also given losartan 25 mg a day. He has been referred for further evaluation for hypokalemia and hypertension. He has been using CPAP regularly. 10/26/23;Tolerating meds;No new issues 08/05/24 43-year-old male presenting with hypertension management and follow-up. He has essential hypertension, generally well-controlled, but affected by a missed medication dose recently, leading to elevated readings. The patient missed his medication during a Mother?s Day outing, resulting in a blood pressure recording of 140/100 mmHg, deviating from his usual regulation. He is prescribed medications including spironolactone, which should be taken in the morning due to its diuretic nature, and losartan, which can be taken if missed at other times. Currently, he exercises two to four times weekly and monitors his diet, though has gained around 30 pounds attributed partly to celebratory eating and perceived stress response post-exercise. Occasionally, the patient reports chest discomfort and slight dizziness during strenuous activity, which do not impede his efforts significantly. Patient's belief regarding diet, stress, and exercise impact on weight and hypertension control has been discussed. Has gained about 30 lbs [facility] Medical History Rash Obesity Tinea versicolor Neutropenia Hypertension, essential Surgical History No pertinent past surgical history Family History Father Unknown family medical history Mother HTN (hypertension) Afib CHF (congestive heart failure) Sister Diabetes mellitus HTN (hypertension) Family history of malignant neoplasm of uterus CKD (chronic kidney disease) Social History Housing: House Alcohol intake: never Patient Tobacco Use Status: Never used Tobacco e-Cigarette/Vaping Use: Never Used service: No Current occupational status: employed Cognitive needs: No Hearing needs: No Vision needs: Yes Physical Exam Vital Signs: Last Vital Signs Pulse 77 08/05/24 15:56 BP 140/100 H 08/05/24 16:10 Pulse Ox 98 08/05/24 15:56 Oxygen Delivery Method Room Air 08/05/24 15:56 BMI result Body Mass Index 51.7 Const General: comfortable; No acute distress Orientation/consciousness: patient oriented x3 Eyes General: appearance normal, both eyes and all related structures Visual Lazo: normal visual lazo by confrontation Neck Neck: Yes supple and Yes no JVD Resp Effort & Inspection: normal respiratory effort and respiratory effort not decreased Cardio Palpation: no palpable S3 and no palpable S4 Heart sounds: no rubs GI Inspection: Yes normal to inspection Palpation (GI): Soft to palpation Percussion: Yes normal to percussion Auscultation: normal bowel sounds General: Yes no CVA tenderness Back/Spine/Pelvis Back: no CVA tenderness Skin General skin exam: no petechiae and no purpura Neuro General: patient oriented x3 and no focal motor deficits Extrem General: No clubbing and No edema Results Reviewed Nephrology Results: Hgb 14.6 g/dl (14.0-18.0) 01/13/24 WBC 5.6 X10*3/uL (4.8-10.8) 01/13/24 Plt Count 298 X10*3/uL (160-400) 01/13/24 Sodium 139 mmol/L (135-145) 07/31/24 Potassium 3.3 mmol/L (3.3-5.1) 07/31/24 Chloride 105 mmol/L (96-108) 07/31/24 Carbon Dioxide 25 mmol/L (22-29) 07/31/24 BUN 12 mg/dL (9-16) 07/31/24 Creatinine 0.89 mg/dL (0.5-1.4) 07/31/24 Calcium 9.3 mg/dL (8.4-10.2) 07/31/24 Assessment & Plan Assessment & Plan (1) Hypokalemia: Code(s): E87.6 - Hypokalemia Category: Medical (2) Resistant hypertension: Code(s): I1A.0 - Resistant hypertension Category: Medical Plan . 43-year-old man with hypertension and elevated BMI with hypokalemia. The hypokalemia might have been due to the use of chlorthalidone. There was no alkalosis. However with a combination of hypertension and hypokalemia hyperaldosteronism needed to be ruled out. PA and PRA NOT suggestive of hyperaldosteronism At present blood pressure is well controlled Keep losartan 25 mg and spironolactone 50 mg and atenolol Encouraged him to stay on low-sodium diet. I have discussed importance of weight loss and continued use of CPAP to optimize blood pressure control. 08/05/24 The patient demonstrates essential hypertension, exacerbated by non-adherence to his prescribed regimen. Recent weight gain of 30 lbs could aslo be a contributing factor I explained the importance of consistently taking losartan, which can be administered later if missed earlier, and to take spironolactone in the morning to avoid disrupting nocturnal rest due to its diuretic effect. With reported weight gain, ongoing emphasis on dietary management and physical activity was advised, alongside reduced sodium intake to mitigate the impact on hypertension and weight. A follow-up appointment in one month will help evaluate hypertension control, with possible medication adjustments depending on blood pressure levels at that time. The possibility of consulting a quality analyst/technical writer to further assist with weight management was discussed if needed. Coding Level of Care Code Est Pt Level 4 (65137) Diagnoses Hypokalemia E87.6 Resistant hypertension I1A.0
[2024-08-05 16:10] VITALS: BP 140/100
== END 2024-08-05 16:12 | disposition home or self-care (01) ==
LOC: HO.HKA 15:56
PROVIDERS: PCP Internal Medicine; Visit Provider Internal Medicine Hypertension Specialist
DX: E87.6 Hypokalemia (principal); I1A.0 Resistant hypertension
CPT/HCPCS: 99214

== ENCOUNTER 2024-09-05 16:18 | Outpatient (AMB) | payer OTHER, SELFPAY ==
--- NOTE | 2024-09-05 16:20 | HO.NEPHOV ---
Vital Signs 09/05/24 16:21 Height 6 ft 1 in Weight 390 lb 6 oz BMI 51.5 BP 152/96 H Blood Pressure Location Lt brachial Position Sitting Pulse 73 Pulse Source Pulse Oximeter Pulse Oximetry (%) 96 Oxygen Delivery Method Room Air Intake Visit Reasons: 1 MO FU/LVM Early Childhood Education Coordinator Required: No Accompanied by: Self / Same As Patient Allergies Seasonal Allergies Allergy (Intermediate, Verified 09/05/24 16:25) Itching lisinopril Adverse Reaction (Unknown, Verified 09/05/24 16:25) cough Medication List - Last Reconciled 09/05/24 by Markos Machado MD atenolol 100 mg PO DAILY losartan 25 mg PO DAILY spironolactone 50 mg PO QAM HPI Comments Details: . Kevin is a pleasant 43-year-old man with a history of hypertension for quite some time in the setting of obstructive sleep apnea and elevated BMI. He was on atenolol with chlorthalidone and blood pressure was controlled. However he had persistent hypokalemia requiring potassium supplementation. Due to recurrent hypokalemia chlorthalidone was discontinued. Blood pressure is suboptimal therefore spironolactone was added. He was also given losartan 25 mg a day. He has been referred for further evaluation for hypokalemia and hypertension. He has been using CPAP regularly. 10/26/23;Tolerating meds;No new issues 08/05/24 43-year-old male presenting with hypertension management and follow-up. He has essential hypertension, generally well-controlled, but affected by a missed medication dose recently, leading to elevated readings. The patient missed his medication during a Mother?s Day outing, resulting in a blood pressure recording of 140/100 mmHg, deviating from his usual regulation. He is prescribed medications including spironolactone, which should be taken in the morning due to its diuretic nature, and losartan, which can be taken if missed at other times. Currently, he exercises two to four times weekly and monitors his diet, though has gained around 30 pounds attributed partly to celebratory eating and perceived stress response post-exercise. Occasionally, the patient reports chest discomfort and slight dizziness during strenuous activity, which do not impede his efforts significantly. Patient's belief regarding diet, stress, and exercise impact on weight and hypertension control has been discussed. Has gained about 30 lbs [facility] Medical History Rash Obesity Tinea versicolor Neutropenia Hypertension, essential Surgical History No pertinent past surgical history Family History Father Unknown family medical history Mother HTN (hypertension) Afib CHF (congestive heart failure) Sister Diabetes mellitus HTN (hypertension) Family history of malignant neoplasm of uterus CKD (chronic kidney disease) Social History Housing: House Alcohol intake: never Patient Tobacco Use Status: Never used Tobacco e-Cigarette/Vaping Use: Never Used service: No Current occupational status: employed Cognitive needs: No Hearing needs: No Vision needs: Yes Physical Exam Vital Signs: Last Vital Signs Pulse 73 09/05/24 16:21 BP 152/96 H 09/05/24 16:21 Pulse Ox 96 09/05/24 16:21 Oxygen Delivery Method Room Air 09/05/24 16:21 BMI result Body Mass Index 51.5 Results Reviewed Nephrology Results: Hgb 14.6 g/dl (14.0-18.0) 01/13/24 WBC 5.6 X10*3/uL (4.8-10.8) 01/13/24 Plt Count 298 X10*3/uL (160-400) 01/13/24 Sodium 139 mmol/L (135-145) 07/31/24 Potassium 3.3 mmol/L (3.3-5.1) 07/31/24 Chloride 105 mmol/L (96-108) 07/31/24 Carbon Dioxide 25 mmol/L (22-29) 07/31/24 BUN 12 mg/dL (9-16) 07/31/24 Creatinine 0.89 mg/dL (0.5-1.4) 07/31/24 Calcium 9.3 mg/dL (8.4-10.2) 07/31/24 Assessment & Plan Assessment & Plan (1) Hypokalemia: Code(s): E87.6 - Hypokalemia Category: Medical (2) Resistant hypertension: Code(s): I1A.0 - Resistant hypertension Category: Medical Plan . 43-year-old man with hypertension and elevated BMI with hypokalemia. The hypokalemia might have been due to the use of chlorthalidone. There was no alkalosis. However with a combination of hypertension and hypokalemia hyperaldosteronism needed to be ruled out. PA and PRA NOT suggestive of hyperaldosteronism Encouraged him to stay on low-sodium diet. I have discussed importance of weight loss and continued use of CPAP to optimize blood pressure control. 08/05/24 The patient demonstrates essential hypertension, exacerbated by non-adherence to his prescribed regimen. Recent weight gain of 30 lbs could aslo be a contributing factor I explained the importance of consistently taking losartan, which can be administered later if missed earlier, and to take spironolactone in the morning to avoid disrupting nocturnal rest due to its diuretic effect. With reported weight gain, ongoing emphasis on dietary management and physical activity was advised, alongside reduced sodium intake to mitigate the impact on hypertension and weight. A follow-up appointment in one month will help evaluate hypertension control, with possible medication adjustments depending on blood pressure levels at that time. The possibility of consulting a sericulture teacher to further assist with weight management was discussed if needed. 09/05/24 DC losartan Add Exforge 5/160 QD Check labs Orders: Orders Basic Metabolic Panel 3 Weeks E87.6 - Hypokalemia, I1A.0 - Resistant hypertension Medications: New amlodipine-valsartan 5-160 mg (Exforge) 1 tab PO DAILY 30 tabs 3RF Discontinued losartan Discontinued Reason: Doctor's Order 25 mg PO DAILY 90 tabs 3RF Coding Level of Care Code Est Pt Level 4 (58796) Diagnoses Hypokalemia E87.6 Resistant hypertension I1A.0
[2024-09-05 16:21] VITALS: BP 152/96; PULSE 73; O2SAT 96; BMI 51.5
== END 2024-09-05 16:35 | disposition home or self-care (01) ==
LOC: HO.HKA 16:19
PROVIDERS: PCP Internal Medicine; Visit Provider Internal Medicine Hypertension Specialist
DX: E87.6 Hypokalemia (principal); I1A.0 Resistant hypertension
CPT/HCPCS: 99214

== ENCOUNTER 2024-10-15 16:47 | Outpatient (REF) | payer OTHER, SELFPAY ==
[2024-10-15 17:31] LABS: Anion Gap 13 (12-20); Blood Urea Nitrogen 10 mg/dL (9-16); Calcium 9.3 mg/dL (8.4-10.2); Carbon Dioxide 24 mmol/L (22-29); Chloride 109 mmol/L (96-108); Estimated Glomerular Filt Rate > 60; Potassium 3.7 mmol/L (3.3-5.1); Sodium 142 mmol/L (135-145)
== END 2024-10-15 16:48 | disposition home or self-care (01) ==
LOC: HO.LAB 16:47
PROVIDERS: PCP Internal Medicine; Visit Provider Internal Medicine Hypertension Specialist
DX: E87.6 Hypokalemia (principal); I1A.0 Resistant hypertension
CPT/HCPCS: 36415; 80048

== ENCOUNTER 2024-10-21 16:04 | Outpatient (AMB) | payer OTHER, SELFPAY ==
[2024-10-21 16:06] VITALS: BP 154/94; PULSE 80; O2SAT 99; BMI 51.8
--- NOTE | 2024-10-21 16:06 | HO.NEPHOV_ITS ---
Vital Signs 10/21/24 16:06 Height 6 ft 1 in Weight 393 lb BMI 51.8 BP 154/94 H Blood Pressure Location Lt brachial Position Sitting Pulse 80 Pulse Source Pulse Oximeter Pulse Oximetry (%) 99 Oxygen Delivery Method Room Air Intake Visit Reasons: 1 MO FU-Conf Welfare Manager Required: No Accompanied by: Self / Same As Patient Allergies Seasonal Allergies Allergy (Intermediate, Verified 10/21/24 16:08) Itching lisinopril Adverse Reaction (Unknown, Verified 10/21/24 16:08) cough Medication List - Last Reconciled 10/21/24 by Markos Machado MD amlodipine-valsartan 5-160 mg (Exforge) 1 tab PO DAILY atenolol 100 mg PO DAILY spironolactone 50 mg PO QAM HPI Comments Details: . Kevin is a pleasant 44-year-old man with a history of hypertension for quite some time in the setting of obstructive sleep apnea and elevated BMI. He was on atenolol with chlorthalidone and blood pressure was controlled. However he had persistent hypokalemia requiring potassium supplementation. Due to recurrent hypokalemia chlorthalidone was discontinued. Blood pressure is suboptimal therefore spironolactone was added. He was also given losartan 25 mg a day. He has been referred for further evaluation for hypokalemia and hypertension. He has been using CPAP regularly. 10/26/23;Tolerating meds;No new issues 08/05/24 43-year-old male presenting with hypertension management and follow-up. He has essential hypertension, generally well-controlled, but affected by a missed medication dose recently, leading to elevated readings. The patient missed his medication during a Mother?s Day outing, resulting in a blood pressure recording of 140/100 mmHg, deviating from his usual regulation. He is prescribed medications including spironolactone, which should be taken in the morning due to its diuretic nature, and losartan, which can be taken if missed at other times. Currently, he exercises two to four times weekly and monitors his diet, though has gained around 30 pounds attributed partly to celebratory eating and perceived stress response post-exercise. Occasionally, the patient reports chest discomfort and slight dizziness during strenuous activity, which do not impede his efforts significantly. Patient's belief regarding diet, stress, and exercise impact on weight and hypertension control has been discussed. Has gained about 30 lbs 10/21/24 Home BP fluctuates No change in weight PFSH Medical History Rash Obesity Tinea versicolor Neutropenia Hypertension, essential Surgical History No pertinent past surgical history Family History Father Unknown family medical history Mother HTN (hypertension) Afib CHF (congestive heart failure) Sister Diabetes mellitus HTN (hypertension) Family history of malignant neoplasm of uterus CKD (chronic kidney disease) Social History Housing: House Alcohol intake: never Patient Tobacco Use Status: Never used Tobacco e-Cigarette/Vaping Use: Never Used service: No Current occupational status: employed Cognitive needs: No Hearing needs: No Vision needs: Yes Physical Exam Vital Signs: Last Vital Signs Pulse 80 10/21/24 16:06 BP 154/94 H 10/21/24 16:06 Pulse Ox 99 10/21/24 16:06 Oxygen Delivery Method Room Air 10/21/24 16:06 BMI result Body Mass Index 51.8 Const General: comfortable; No acute distress Orientation/consciousness: patient oriented x3 Eyes General: appearance normal, both eyes and all related structures Visual Lazo: normal visual lazo by confrontation Neck Neck: Yes supple and Yes no JVD Resp Effort & Inspection: normal respiratory effort and respiratory effort not decreased Cardio Palpation: no palpable S3 and no palpable S4 Heart sounds: no rubs GI Inspection: Yes normal to inspection Palpation (GI): Soft to palpation Percussion: Yes normal to percussion Auscultation: normal bowel sounds General: Yes no CVA tenderness Back/Spine/Pelvis Back: no CVA tenderness Skin General skin exam: no petechiae and no purpura Neuro General: patient oriented x3 and no focal motor deficits Extrem General: No clubbing and No edema Results Reviewed Nephrology Results: Hgb, (14.0-18.0) 14.6 g/dl 01/13/24 WBC, (4.8-10.8) 5.6 X10*3/uL 01/13/24 Plt Count, (160-400) 298 X10*3/uL 01/13/24 Sodium, (135-145) 142 mmol/L 10/15/24 Potassium, (3.3-5.1) 3.7 mmol/L 10/15/24 Chloride, (96-108) 109 mmol/L H 10/15/24 Carbon Dioxide, (22-29) 24 mmol/L 10/15/24 BUN, (9-16) 10 mg/dL 10/15/24 Creatinine, (0.5-1.4) 1.10 mg/dL 10/15/24 Calcium, (8.4-10.2) 9.3 mg/dL 10/15/24 Assessment & Plan Assessment & Plan (1) Hypokalemia: Code(s): E87.6 - Hypokalemia Category: Medical (2) Resistant hypertension: Code(s): I1A.0 - Resistant hypertension Category: Medical Plan . 44-year-old man with hypertension and elevated BMI with hypokalemia. The hypokalemia might have been due to the use of chlorthalidone. There was no alkalosis. However with a combination of hypertension and hypokalemia hyperaldosteronism needed to be ruled out. PA and PRA NOT suggestive of hyperaldosteronism Encouraged him to stay on low-sodium diet. I have discussed importance of weight loss and continued use of CPAP to optimize blood pressure control. 08/05/24 The patient demonstrates essential hypertension, exacerbated by non-adherence to his prescribed regimen. Recent weight gain of 30 lbs could aslo be a contributing factor I explained the importance of consistently taking losartan, which can be admin istered later if missed earlier, and to take spironolactone in the morning to avoid disrupting nocturnal rest due to its diuretic effect. With reported weight gain, ongoing emphasis on dietary management and physical activity was advised, alongside reduced sodium intake to mitigate the impact on hypertension and weight. A follow-up appointment in one month will help evaluate hypertension control, with possible medication adjustments depending on blood pressure levels at that time. The possibility of consulting a matcher offbearer to further assist with weight management was discussed if needed. 09/05/24 DC losartan Add Exforge 5/160 QD Check labs Orders: Orders AMB 24 HR B/P Monitor PLACEMENT Today I10 - Essential (primary) hypertension Coding Level of Care Code Est Pt Level 4 (44382) Diagnoses Hypokalemia E87.6 Resistant hypertension I1A.0
== END 2024-10-21 16:19 | disposition home or self-care (01) ==
LOC: HO.HKA 16:05
PROVIDERS: PCP Internal Medicine; Visit Provider Internal Medicine Hypertension Specialist
DX: E87.6 Hypokalemia (principal); I1A.0 Resistant hypertension
CPT/HCPCS: 99214

== ENCOUNTER → 2024-10-23 09:04 | Outpatient (BNVA) | payer OTHER, SELFPAY | PROVIDERS: PCP Internal Medicine; Visit Provider Internal Medicine Hypertension Specialist | DX: I10 Essential (primary) hypertension (principal) | CPT/HCPCS: 93786; 93788 ==

== ENCOUNTER 2024-12-12 16:05 | Outpatient (AMB) | payer OTHER, SELFPAY ==
--- NOTE | 2024-12-12 16:07 | HO.NEPHOV_ITS ---
Vital Signs 12/12/24 16:08 Height 6 ft 1 in Weight 402 lb BMI 53.0 BP 132/88 Blood Pressure Location Rt radial Position Sitting Pulse 88 Pulse Source Pulse Oximeter Pulse Oximetry (%) 95 Oxygen Delivery Method Room Air Intake Visit Reasons: 2-3wk f/u w/labs-Conf Home Sales Consultant Required: No Accompanied by: Self / Same As Patient Allergies Seasonal Allergies Allergy (Intermediate, Verified 12/12/24 16:10) Itching lisinopril Adverse Reaction (Unknown, Verified 12/12/24 16:10) cough Medication List - Last Reconciled 12/12/24 by Markos Machado MD amlodipine-valsartan 5-160 mg (Exforge) 1 tab PO DAILY atenolol 100 mg PO DAILY spironolactone 50 mg PO QAM HPI Comments Details: . Kevin is a pleasant 44-year-old man with a history of hypertension for quite some time in the setting of obstructive sleep apnea and elevated BMI. He was on atenolol with chlorthalidone and blood pressure was controlled. However he had persistent hypokalemia requiring potassium supplementation. Due to recurrent hypokalemia chlorthalidone was discontinued. Blood pressure is suboptimal therefore spironolactone was added. He was also given losartan 25 mg a day. He has been referred for further evaluation for hypokalemia and hypertension. He has been using CPAP regularly. 10/26/23;Tolerating meds;No new issues 08/05/24 43-year-old male presenting with hypertension management and follow-up. He has essential hypertension, generally well-controlled, but affected by a missed medication dose recently, leading to elevated readings. The patient missed his medication during a Mother?s Day outing, resulting in a blood pressure recording of 140/100 mmHg, deviating from his usual regulation. He is prescribed medications including spironolactone, which should be taken in the morning due to its diuretic nature, and losartan, which can be taken if missed at other times. Currently, he exercises two to four times weekly and monitors his diet, though has gained around 30 pounds attributed partly to celebratory eating and perceived stress response post-exercise. Occasionally, the patient reports chest discomfort and slight dizziness during strenuous activity, which do not impede his efforts significantly. Patient's belief regarding diet, stress, and exercise impact on weight and hypertension control has been discussed. Has gained about 30 lbs 10/21/24 Home BP fluctuates No change in weight 12/12/24 - The patient is a 44-year-old male presenting with hypertension management. - Hypertension: 24-hour average BP 144/88 mmHg, daytime 150/90 mmHg, nighttime 128/83 mmHg. - Medications: Amlodipine valsartan, atenolol, spironolactone. - Weight gain: Recent increase from 390 to 402 pounds. - Muscle spasm: Back spasms earlier in the week, resolved. [facility] Medical History Rash Obesity Tinea versicolor Neutropenia Hypertension, essential Surgical History No pertinent past surgical history Family History Father Unknown family medical history Mother HTN (hypertension) Afib CHF (congestive heart failure) Sister Diabetes mellitus HTN (hypertension) Family history of malignant neoplasm of uterus CKD (chronic kidney disease) Social History Housing: House Alcohol intake: never Patient Tobacco Use Status: Never used Tobacco e-Cigarette/Vaping Use: Never Used service: No Current occupational status: employed Cognitive needs: No Hearing needs: No Vision needs: Yes Physical Exam Vital Signs: Last Vital Signs Pulse 88 12/12/24 16:08 BP 132/88 12/12/24 16:08 Pulse Ox 95 12/12/24 16:08 Oxygen Delivery Method Room Air 12/12/24 16:08 BMI result Body Mass Index 53.0 Const General: comfortable; No acute distress Orientation/consciousness: patient oriented x3 Eyes General: appearance normal, both eyes and all related structures Visual Lazo: normal visual lazo by confrontation Neck Neck: Yes supple and Yes no JVD Resp Effort & Inspection: normal respiratory effort and respiratory effort not decreased Cardio Palpation: no palpable S3 and no palpable S4 Heart sounds: no rubs GI Inspection: Yes normal to inspection Palpation (GI): Soft to palpation Percussion: Yes normal to percussion Auscultation: normal bowel sounds General: Yes no CVA tenderness Back/Spine/Pelvis Back: no CVA tenderness Skin General skin exam: no petechiae and no purpura Neuro General: patient oriented x3 and no focal motor deficits Extrem General: No clubbing and No edema Office Procedures 24 B/P Monitor Interpretation Details: ABPM stage 1 HTN Minimal dipping No significant white coat effect CPT: 92457 24 Hour Blood Pressure Monitor Reading Procedure code (CPT) selection complete Results Reviewed Nephrology Results: Sodium, (135-145) 142 mmol/L 10/15/24 Potassium, (3.3-5.1) 3.7 mmol/L 10/15/24 Chloride, (96-108) 109 mmol/L H 10/15/24 Carbon Dioxide, (22-29) 24 mmol/L 10/15/24 BUN, (9-16) 10 mg/dL 10/15/24 Creatinine, (0.5-1.4) 1.10 mg/dL 10/15/24 Calcium, (8.4-10.2) 9.3 mg/dL 10/15/24 Assessment & Plan Assessment & Plan (1) Hypokalemia: Code(s): E87.6 - Hypokalemia Category: Medical (2) Resistant hypertension: Code(s): I1A.0 - Resistant hypertension Category: Medical Plan . 44-year-old man with hypertension and elevated BMI with hypokalemia. The hypokalemia might have been due to the use of chlorthalidone. There was no alkalosis. However with a combination of hypertension and hypokalemia hyperaldosteronism needed to be ruled out. PA and PRA NOT suggestive of hyperaldosteronism Encouraged him to stay on low-sodium diet. I have discussed importance of weight loss and continued use of CPAP to optimize blood pressure control. 08/05/24 The patient demonstrates essential hypertension, exacerbated by non-adherence to his prescribed regimen. Recent weight gain of 30 lbs could aslo be a contributing factor I explained the importance of consistently taking losartan, which can be administered later if missed earlier, and to take spironolactone in the morning to avoid disrupting nocturnal rest due to its diuretic effect. With reported weight gain, ongoing emphasis on dietary management and physical activity was advised, alongside reduced sodium intake to mitigate the impact on hypertension and weight. A follow-up appointment in one month will help evaluate hypertension control, with possible medication adjustments depending on blood pressure levels at that time. The possibility of consulting a scutcher tender to further assist with weight management was discussed if needed. 09/05/24 DC losartan Add Exforge 5/160 QD Check labs 12/12/24 HTN Based on 24 hr ABPM, Continue medications: amlodipine valsartan, atenolol, spironolactone. - Home BP monitoring advised. - Reassess in three months for potential medication adjustment. Orders: Orders Basic Metabolic Panel 3 Months I1A.0 - Resistant hypertension AMB 24 HR B/P Monitor INTERPRETATION Today I10 - Essential (primary) hypertension Patient Instructions: - Continue taking your blood pressure medications as prescribed. - Monitor your blood pressure at home regularly and report any significant changes. - Keep track of your weight and try to maintain a stable weight to help control your blood pressure. - Return for follow-up in three months for reassessment. Coding Level of Care Code Est Pt Level 4 (88795) Diagnoses Hypokalemia E87.6 Resistant hypertension I1A.0 CPT Codes - CPT: 27511 24 Hour Blood Pressure Monitor Reading ([id number])
[2024-12-12 16:08] VITALS: BP 132/88; PULSE 88; O2SAT 95; BMI 53.0
== END 2024-12-12 16:19 | disposition home or self-care (01) ==
LOC: HO.HKA 16:06
PROVIDERS: PCP Internal Medicine; Visit Provider Internal Medicine Hypertension Specialist
DX: E87.6 Hypokalemia (principal); I1A.0 Resistant hypertension
CPT/HCPCS: 93790; 99214